=== PATIENT | female | born 1995 | race Caucasian/White ===

== ENCOUNTER 2020-04-27 09:00 | Outpatient (REF) | payer OTHER, SELFPAY ==
[2020-04-27 12:58] LABS: CT PCR NOT DETECTED (Not Detect.); NG PCR NOT DETECTED (Not Detect.)
[2020-04-28 08:38] LABS: HBsAGNum1 0.23 S/CO (0.00-0.99); Hepatitis B Surface Antigen Negative (Negative)
[2020-04-28 09:32] LABS: BV Int Neg Control Negative (Negative); BV Int Pos Control Positive (Positive)
[2020-04-28 09:40] LABS: Syphilis Screen Nonreactive (Nonreactive)
[2020-05-02 22:56] LABS: HSV 1 IgM IFA Negative (Negative); HSV 2 IgM IFA Negative (Negative)
== END 2020-04-27 09:01 | disposition home or self-care (01) ==
LOC: HO.LAB 09:00
PROVIDERS: PCP Internal Medicine; Visit Provider Obstetrics & Gynecology
DX: Z11.3 Encounter for screening for infections with a predominantly sexual mode of transmission (principal); Z01.84 Encounter for antibody response examination; Z12.4 Encounter for screening for malignant neoplasm of cervix
CPT/HCPCS: 86695; 86696; 86780; 87340; 87480; 87491; 87510; 87536; 87591; 87660; 99213

== ENCOUNTER → 2020-05-01 14:03 | Outpatient (BNV) | payer OTHER, SELFPAY | PROVIDERS: PCP Internal Medicine; Visit Provider Internal Medicine | DX: D50.0 Iron deficiency anemia secondary to blood loss (chronic) (principal); N92.0 Excessive and frequent menstruation with regular cycle; D72.9 Disorder of white blood cells, unspecified; Z79.899 Other long term (current) drug therapy | CPT/HCPCS: 99213 ==

== ENCOUNTER 2020-05-12 07:55 | Outpatient (REF) | payer OTHER, SELFPAY | END 2020-05-12 07:56 | disposition home or self-care (01) | LOC: HO.MDS 07:55 | PROVIDERS: PCP Internal Medicine; Visit Provider Internal Medicine | DX: D50.9 Iron deficiency anemia, unspecified (principal) | CPT/HCPCS: 96365; 96366; J1200; J1750; Q0163 ==

== ENCOUNTER 2020-08-17 07:47 | Outpatient (REF) | payer OTHER, SELFPAY ==
[2020-08-17 10:31] LABS: Thyroid Stimulating Hormone 1.81 uIU/mL (0.32-4.0)
[2020-08-18 09:14] LABS: BV Int Neg Control Negative (Negative); BV Int Pos Control Positive (Positive)
[2020-08-18 13:13] LABS: C. trachomatis RNA TMA NOT DETECTED (NOT DETECTED); N. gonorrhoeae RNA TMA NOT DETECTED (NOT DETECTED)
[2020-08-19 17:08] LABS: Prolactin 8.4 ng/mL
[2020-08-21 18:12] LABS: DHEA Sulfate 251 mcg/dL (18-391)
[2020-08-23 13:07] LABS: Testosterone, Total 30 ng/dL (2-45)
== END 2020-08-17 07:48 | disposition home or self-care (01) ==
LOC: HO.LAB 07:47
PROVIDERS: PCP Internal Medicine; Visit Provider Advanced Practice Midwife
DX: Z01.411 Encounter for gynecological examination (general) (routine) with abnormal findings (principal); L68.0 Hirsutism; D50.9 Iron deficiency anemia, unspecified; R10.2 Pelvic and perineal pain; N92.6 Irregular menstruation, unspecified; E66.8 Other obesity; Z68.43 Body mass index [BMI] 50.0-59.9, adult
CPT/HCPCS: 36415; 81025; 82627; 83498; 84146; 84402; 84403; 84443; 87480; 87491; 87510; 87591; 87660

== ENCOUNTER 2020-12-07 14:25 | Outpatient (REF) | payer OTHER, SELFPAY ==
--- NOTE | ~2020-12-07 | US_ITS ---
EXAMINATION: ULTRASOUND PELVIS COMPLETE. CLINICAL INFORMATION: Pelvic and perineal pain. COMPARISON: None TECHNIQUE: Transabdominal and transvaginal imaging of pelvis is performed. FINDINGS: The uterus is anteverted and anteflexed measuring 7.3 cm in length, 3.3 cm AP and 4.1 cm in transverse dimension. Endometrial thickness is 1.4 cm. There is no focal lesion seen in the uterus. There are small anechoic nabothian cysts seen in the cervix. Right ovary measures 3.8 x 3.0 x 1.7 cm and volume 10.2 mL. Small follicular cysts are seen. Previously right ovary measured 2.9 x 4.4 x 3.4 cm. Left ovary measures 2.0 x 2.0 x 2.5 cm and volume 7.9 mL. Small follicular cysts are seen in left ovary. Previously left ovary measured 2.0 x 2.7 x 2.7 cm. There is no free fluid in cul-de-sac. US/US pelvic complete IMPRESSION: Bilateral small ovarian follicular cysts. Small nabothian cysts in the cervix. The uterus is unremarkable.
--- NOTE | ~2020-12-07 | US_ITS ---
EXAMINATION: ULTRASOUND PELVIS COMPLETE. CLINICAL INFORMATION: Pelvic and perineal pain. COMPARISON: None TECHNIQUE: Transabdominal and transvaginal imaging of pelvis is performed. FINDINGS: The uterus is anteverted and anteflexed measuring 7.3 cm in length, 3.3 cm AP and 4.1 cm in transverse dimension. Endometrial thickness is 1.4 cm. There is no focal lesion seen in the uterus. There are small anechoic nabothian cysts seen in the cervix. Right ovary measures 3.8 x 3.0 x 1.7 cm and volume 10.2 mL. Small follicular cysts are seen. Previously right ovary measured 2.9 x 4.4 x 3.4 cm. Left ovary measures 2.0 x 2.0 x 2.5 cm and volume 7.9 mL. Small follicular cysts are seen in left ovary. Previously left ovary measured 2.0 x 2.7 x 2.7 cm. There is no free fluid in cul-de-sac. US/US transvaginal IMPRESSION: Bilateral small ovarian follicular cysts. Small nabothian cysts in the cervix. The uterus is unremarkable.
== END 2020-12-07 14:26 | disposition home or self-care (01) ==
LOC: HO.US 14:25
PROVIDERS: PCP Internal Medicine; Visit Provider Advanced Practice Midwife
DX: R10.2 Pelvic and perineal pain (principal)
CPT/HCPCS: 76830; 76856

== ENCOUNTER → 2020-12-18 11:03 | Outpatient (BNVA) | payer OTHER, SELFPAY | PROVIDERS: PCP Internal Medicine; Visit Provider Advanced Practice Midwife ==

== ENCOUNTER → 2021-01-15 08:35 | Outpatient (BNVA) | payer OTHER, SELFPAY | PROVIDERS: PCP Internal Medicine; Visit Provider Surgery ==

== ENCOUNTER → 2021-01-16 10:56 | Outpatient (BNVA) | payer OTHER, SELFPAY | PROVIDERS: PCP Internal Medicine; Referring Provider Internal Medicine; Visit Provider Physician Assistant ==

== ENCOUNTER 2021-01-19 11:02 | Outpatient (REF) | payer OTHER, SELFPAY ==
--- NOTE | ~2021-01-19 | XR_ITS ---
EXAMINATION: XR CHEST CLINICAL INFORMATION: Obesity COMPARISON: Previous chest x-ray January 2020 TECHNIQUE: 2 views of the chest were obtained. FINDINGS: The cardiac and mediastinal contours are stable. The lungs are clear. There is slight elevation or eventration of the right hemidiaphragm that is unchanged. There is no pleural effusion or pneumothorax. Bony structures are unremarkable. XR/XR chest 2V IMPRESSION: Slight elevation or or eventration of the right hemidiaphragm similar to previous exams. No evidence for acute disease in the chest.
--- NOTE | 2021-01-19 11:10 | ECG_ITS ---
Test Reason : MORBID OBESITY Blood Pressure : / mmHG Vent. Rate : 085 BPM Atrial Rate : 085 BPM P-R Int : 132 ms QRS Dur : 086 ms QT Int : 392 ms P-R-T Axes : 049 061 013 degrees QTc Int : 466 ms Normal sinus rhythm Normal ECG When compared with ECG of 30-JAN-2020 07:44, Nonspecific T wave abnormality no longer evident in Anterior leads Referred By: Brett Nails Electronically Signed By:CONSTANTIN VALERO
[2021-01-19 11:38] LABS: MANUAL DIFF FLAG NO
[2021-01-19 11:44] LABS: Basophils Percent Auto 0.4 % (0-2); Eosinophils Absolute Auto 0.1 X10*3/uL (0.0-0.4); Eosinophils Percent Auto 0.9 % (0-4); Hematocrit 38.4 % (37-47); Hemoglobin 11.9 g/dl (12.0-16.0); Imm Gran Abs Auto 0.04 X10*3/uL (0.00-0.03); Imm Gran Pct Auto 0.4 % (0.0-0.4); Lymphocytes Absolute Auto 2.8 X10*3/uL (1.2-4.9); Lymphocytes Percent Auto 26.2 % (20-40); Mean Corpuscular Hemoglobin 24.7 pg (27.0-33.0); Mean Corpuscular Volume 79.7 fL (80-98); Mean Platelet Volume 9.8 fL (9.4-12.3); Monocytes Absolute Auto 0.5 X10*3/uL (0.1-1.2); Monocytes Percent Auto 4.2 % (2-11); Neutrophils Absolute Auto 7.3 X10*3/uL (2.0-8.3); Neutrophils Percent Auto 67.9 % (45-73); Platelet Count 402 X10*3/uL (160-400); Red Blood Count 4.82 X10*6/uL (4.20-5.50); Red Cell Distribution Width 14.5 % (11.0-16.0); White Blood Count 10.8 X10*3/uL (4.8-10.8)
[2021-01-19 11:52] LABS: Estimated Average Glucose 111 mg/dL; Hemoglobin A1c % 5.5 %
[2021-01-19 12:34] LABS: Vitamin B12 262 pg/mL (200-900)
[2021-01-19 12:35] LABS: Ferritin 132 ng/mL (10-122); TSH reflex Free T4 1.21 uIU/mL (0.32-4.0); Vitamin D 25-OH Total 20.7 ng/mL (>30)
[2021-01-19 13:00] LABS: Alanine Aminotransferase 15 U/L (0-31); Albumin Level 4.2 g/dL (3.5-5.0); Alkaline Phosphatase 110 U/L (39-117); Anion Gap 14 (12-20); Aspartate Amino Transferase 17 U/L (5-31); Bilirubin Total 0.4 mg/dL (0.0-1.0); Blood Urea Nitrogen 10 mg/dL (9-16); Calcium 9.3 mg/dL (8.4-10.2); Carbon Dioxide 24 mmol/L (22-29); Chloride 105 mmol/L (96-108); Cholesterol 151 mg/dL; Estimated Glomerular Filt Rate > 60; Glucose Random 97 mg/dL (60-115); HDL Cholesterol 45 mg/dL; Iron 33 mcg/dL (30-160); LDL Cholesterol Calculated 93 mg/dl; Percent Iron Saturation 10 % (15-50); Potassium 4.3 mmol/L (3.3-5.1); Sodium 139 mmol/L (135-145); Total Iron Binding Capacity 325 mcg/dL (228-428); Total Protein 7.4 g/dL (6.5-8.0); Triglycerides 67 mg/dL; Unsaturated Iron Binding 292 ug/dL
[2021-01-20 09:52] LABS: Insulin Level Total 15.5 uIU/mL
[2021-01-20 14:21] LABS: H Pylori Breath Test NOT DETECTED (NOT DETECTED)
[2021-01-23 08:38] LABS: Calcium (PTHI) 9.2 mg/dL (8.6-10.2); PTHI 70 pg/mL (14-64)
[2021-01-23 13:27] LABS: Zinc 63 mcg/dL (60-130)
[2021-01-24 14:32] LABS: Vitamin A 30 mcg/dL (38-98)
[2021-01-25 13:41] LABS: Vitamin B1 11 nmol/L (8-30)
== END 2021-01-19 11:03 | disposition home or self-care (01) ==
LOC: HO.LAB 11:02
PROVIDERS: PCP Internal Medicine; Visit Provider Surgery
DX: D50.9 Iron deficiency anemia, unspecified (principal); E28.2 Polycystic ovarian syndrome; E66.01 Morbid (severe) obesity due to excess calories; F41.9 Anxiety disorder, unspecified; M54.9 Dorsalgia, unspecified
CPT/HCPCS: 36415; 71046; 80053; 80061; 82306; 82607; 82728; 82746; 83013; 83036; 83525; 83540; 83970; 84425; 84443; 84590; 84630; 85025; 86140; 93005; 99211

== ENCOUNTER → 2021-02-09 07:00 | Outpatient (BNVA) | payer OTHER, SELFPAY | PROVIDERS: PCP Internal Medicine; Visit Provider Surgery ==

== ENCOUNTER → 2021-02-16 08:32 | Outpatient (BNVA) | payer OTHER, SELFPAY | PROVIDERS: PCP Internal Medicine; Visit Provider Dietitian, Registered | DX: E66.9 Obesity, unspecified (principal); Z68.42 Body mass index [BMI] 45.0-49.9, adult | CPT/HCPCS: 97802 ==

== ENCOUNTER → 2021-03-16 08:05 | Outpatient (BNVA) | payer OTHER, SELFPAY | PROVIDERS: PCP Internal Medicine; Visit Provider Dietitian, Registered ==

== ENCOUNTER 2021-03-26 12:09 | Outpatient (REF) | payer OTHER, SELFPAY ==
[2021-03-27 09:00] LABS: HBS Num1 5.47 mIU/mL (0-7.99); HBc Num1 0.32 S/CO (0.00-0.79); HBsAGNum1 0.25 S/CO (0.00-0.99); Hepatitis B Core Antibody Nonreactive (Nonreactive); Hepatitis B Surface Antigen Negative (Negative); ~Hepatitis B Surface Antibody NONREACTIVE (Nonreactive)
[2021-04-02 16:02] LABS: TS Negative Control Passed; TS Panel A 0; TS Panel B 0; TS Positive Control Passed; TSpotTB Negative (SeeBelow)
== END 2021-03-26 12:10 | disposition home or self-care (01) ==
LOC: HO.LAB 12:09
PROVIDERS: PCP Internal Medicine; Visit Provider Internal Medicine
DX: Z11.1 Encounter for screening for respiratory tuberculosis (principal); Z78.9 Other specified health status
CPT/HCPCS: 36415; 86481; 86704; 86706; 87340

== ENCOUNTER 2021-08-08 08:20 | Outpatient (REF) | payer OTHER, SELFPAY ==
[2021-08-08 15:49] LABS: CT PCR NOT DETECTED (Not Detect.); NG PCR NOT DETECTED (Not Detect.)
[2021-08-09 10:01] LABS: BV Int Neg Control Negative (Negative); BV Int Pos Control Positive (Positive)
== END 2021-08-08 08:21 | disposition home or self-care (01) ==
LOC: HO.LAB 08:20
PROVIDERS: PCP Internal Medicine; Visit Provider Advanced Practice Midwife
DX: Z01.419 Encounter for gynecological examination (general) (routine) without abnormal findings (principal); R10.2 Pelvic and perineal pain; E28.2 Polycystic ovarian syndrome; E66.01 Morbid (severe) obesity due to excess calories; Z79.899 Other long term (current) drug therapy; Z20.2 Contact with and (suspected) exposure to infections with a predominantly sexual mode of transmission; Z68.43 Body mass index [BMI] 50.0-59.9, adult; Z32.02 Encounter for pregnancy test, result negative
CPT/HCPCS: 81025; 87086; 87480; 87491; 87510; 87591; 87660; 99212

== ENCOUNTER 2021-08-29 14:14 | Outpatient (REF) | payer OTHER, MEDICAID, SELFPAY ==
--- NOTE | ~2021-08-29 | US_ITS ---
EXAMINATION: US PELVIS CLINICAL INFORMATION: Pelvic and perineal pain. COMPARISON: None TECHNIQUE: Ultrasound of the pelvis is performed using both transabdominal and transvaginal transducers along with Doppler. Transvaginal imaging is performed due to inadequate visualization transabdominally. FINDINGS: Uterus: The uterus is anteverted, anteflexed and measures 6.8 x 3.6 x 5.1 cm. The double wall endometrial thickness is thickened measuring 1.7 cm. The uterus is smooth in contour and has normal myometrial echogenicity. No visible fibroid. Adnexa: Both ovaries are visualized. There is normal color-flow to the adnexa. There is no ovarian torsion. There is no pelvic ascites or fluid collection. Right ovary measures 3.9 x 3.1 x 2.4 cm and volume 15.2 mL. There is an isoechoic cyst measuring 1.8 x 1.5 x 1.3 cm. Left ovary measures 3.0 x 2.7 x 2.3 cm and volume 9.8 mL. US/US pelvic and transvaginal IMPRESSION: Thickened endometrium but no focal lesion seen. The uterus is otherwise unremarkable. Isoechoic cyst right ovary.
== END 2021-08-29 14:15 | disposition home or self-care (01) ==
LOC: HO.US 14:14
PROVIDERS: PCP Internal Medicine; Visit Provider Advanced Practice Midwife
DX: R10.2 Pelvic and perineal pain (principal); E28.2 Polycystic ovarian syndrome
CPT/HCPCS: 76830; 76856

== ENCOUNTER → 2021-10-23 15:20 | Outpatient (BNVA) | payer OTHER, MEDICAID, SELFPAY | PROVIDERS: Visit Provider Advanced Practice Midwife | DX: Z13.89 Encounter for screening for other disorder (principal) ==

== ENCOUNTER 2023-01-22 14:36 | Outpatient (AMB) | payer OTHER, SELFPAY ==
[2023-01-22 14:40] VITALS: BP 126/59; PULSE 96; TEMP 36.4; O2SAT 96; BMI 55.3
--- NOTE | 2023-01-22 14:40 | MHC.OFFVISWM ---
Intake VS Expanded 01/22/23 14:40 Height 5 ft 6 in Weight 342 lb 6.4 oz BMI 55.3 BP 126/59 L Blood Pressure Location Rt brachial Blood Pressure Position Sitting Pulse 96 Pulse Source Pulse Oximeter Temp 97.5 F Temperature Source Temporal Artery Scan Pulse Oximetry 96 Oxygen Delivery Method Room Air Body Fat 183.4 Body Fat Percentage 53.6 Free Fat Mass 159.0 Muscle Mass 151.0 Visceral Mass 19.0 Water Mass 114.2 BMR 2,377 Intake Visit Reasons: (OV) Re-Est SWL Allergies aloe Allergy (Intermediate, Verified 01/22/23 14:42) Hives guaifenesin [From ROBITUSSIN] Allergy (Intermediate, Verified 01/22/23 14:42) Rash HPI HPI Comments History of Present Illness Details 27 yo woman was in our SWL program in January 2022 for 1 month and 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 She came in today to ask about all of the options available to her as she is still unsure about having bariatic surgery - fear of surgery. She understands that she has gaiend weight on her own. [facility] Medical History Anxiety Back pain Depression Extreme obesity Gall stone Hepatitis B immune History of anxiety History of PCOS Insomnia Morbid obesity Surgical History History of surgery Hx of cholecystectomy Family History Maternal Grandmother Diabetes Mother Migraine Father No problems noted. Sister No problems noted. Maternal Uncle Diabetes Family/Other Breast cancer Other Mental health disorder Social History Household Members: None Housing: Apartment Alcohol intake: current Alcohol intake frequency: holidays/special occasions only Patient Tobacco Use Status: Never used Tobacco Second Hand Smoke Exposure: No service: No Current occupational status: employed and unemployed Sexual orientation: Straight/Heterosexual Gender identity: Female Cognitive needs: No Hearing needs: No Vision needs: Yes Female Reproductive History Menstrual Age of Menarche: 12 Physical Exam Vital Signs: Last Vital Signs Temp 97.5 F 01/22/23 14:40 Pulse 96 01/22/23 14:40 BP 126/59 L 01/22/23 14:40 Pulse Ox 96 01/22/23 14:40 Oxygen Delivery Method Room Air 01/22/23 14:40 BMI result Body Mass Index 55.3 Assessment & Plan Assessment & Plan (1) Obesity, morbid, BMI 50 or higher: Code(s): E66.01 - Morbid (severe) obesity due to excess calories Plan: I reviewed our MWL program, Obera balloon, anti-obsity meds and our SWL program including surgical diagrams. She said she will think about it, check with her insurance company and let us know if she wants to restart. Patient is morbidly obese and is not considered stable at this time. I spent 30 minutes in total with patient reviewing/updating records, examining the patient and counseling the patient on weight management as detailed above. Coding Level of Care Code Est Pt Level 4 (77073) Diagnoses Obesity, morbid, BMI 50 or higher E66.01
== END 2023-01-22 15:33 | disposition home or self-care (01) ==
PROVIDERS: PCP Internal Medicine; Visit Provider Physician Assistant
DX: E66.01 Morbid (severe) obesity due to excess calories (principal); Z68.43 Body mass index [BMI] 50.0-59.9, adult
CPT/HCPCS: 99214

== ENCOUNTER → 2023-01-22 14:36 | Outpatient (BNVA) | payer OTHER, SELFPAY | PROVIDERS: PCP Internal Medicine; Visit Provider Physician Assistant | DX: E66.01 Morbid (severe) obesity due to excess calories (principal); Z68.43 Body mass index [BMI] 50.0-59.9, adult | CPT/HCPCS: 99212 ==

== ENCOUNTER 2023-01-23 10:01 | Outpatient (AMB) | payer OTHER, SELFPAY ==
[2023-01-23 10:03] VITALS: BP 110/60; BMI 55.2
--- NOTE | 2023-01-23 10:03 | MHC.OFFVIS ---
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 She has been having regular periods up until recently where she has says she started bleeding at this whole last month. She does not really keep track of her periods so she can keep me a date that the bleeding started she was seen yesterday for 2 other appointments in the system 1 was with weight management program. She had been seen there previously a couple of years ago and had initiated a workup but has been hesitant about proceeding and is it actually afraid of surgery and had a discussion with [facility] yesterday about her options but needs to find out if whether or not her insurance would cover next steps and also she needs to make an appointment with stewardess supervisor. She also saw Dr. Galvez yesterday because she is very anemic and she got some blood work done yesterday that prove set. And she has been scheduled for iron transfusions starting at the end of January. She has not seen her primary care provider in about 8 months according to the system is notes and she is on sertraline through her primary care provider which she says does help with depression. She is currently unemployed and she does live on her own but she spends time either in her house or her parent's house or cleaning. She thinks she may get about half an hour a day of activity or exercise she likes dancing and walking. Yesterday she did not eat much only 2 slices of pizza which she knows was not good but it was because she was so tired before and after her appointments because of the anemia. Her periods before this were regular,; she has always had clots though she says it has been heavier and more crazy in the past, and this is not as heavy as it has been in the past. She was diagnosed with PCOS sometime when she was in high school. She does remember being on control pills in the past but she stopped them because she did not like how they made her feel. She is not sexually active now and has no plans to be but if she did she would use condoms for control.. She wants to start doing something about the PCOS. She had labs ordered a year and a half ago by me but somehow they got canceled in the system it is unclear how or by who. She has had other labs done in the past but quite a while ago by both weight management program and other providers in this office as well her last labs for ?PCOS were done in 2020 and they were within the normal ranges. She is due for a Pap smear as it has been 3 years since her last 1 and she did not come prepared for an exam today. She wants to start dealing with her PCOS and she is hoping very much in her mind that maybe if she was able to use some of the medications that are being used for weight loss now that maybe that would help her because nothing she does seems to work. And she is still afraid of surgery she would like to do it without surgery were if she could. [facility] Medical History Anxiety Back pain Depression Extreme obesity Gall stone Hepatitis B immune History of anxiety History of PCOS Insomnia Morbid obesity Surgical History History of surgery Hx of cholecystectomy Family History Maternal Grandmother Diabetes Mother Migraine Father No problems noted. Sister No problems noted. Maternal Uncle Diabetes Family/Other Breast cancer Other Mental health disorder Social History Household Members: None Housing: Apartment Alcohol intake: current Alcohol intake frequency: holidays/special occasions only Patient Tobacco Use Status: Never used Tobacco Second Hand Smoke Exposure: No service: No Current occupational status: employed and unemployed Sexual orientation: Straight/Heterosexual Gender identity: Female Cognitive needs: No Hearing needs: No Vision needs: Yes Female Reproductive History Menstrual Age of Menarche: 12 Date of last menstrual period: 01/09/23 Physical Exam Vital Signs: Last Vital Signs BP 110/60 01/23/23 10:03 BMI result Body Mass Index 55.2 Assessment & Plan Assessment & Plan (1) PCOS (polycystic ovarian syndrome): Code(s): E28.2 - Polycystic ovarian syndrome (2) Morbid obesity: Code(s): E66.01 - Morbid (severe) obesity due to excess calories (3) PCOS (polycystic ovarian syndrome): Code(s): E28.2 - Polycystic ovarian syndrome (4) Hirsutism: Code(s): L68.0 - Hirsutism (5) Iron deficiency anemia: Code(s): D50.9 - Iron deficiency anemia, unspecified (6) Abnormal uterine bleeding (AUB): Code(s): N93.9 - Abnormal uterine and vaginal bleeding, unspecified (7) Obesity, morbid, BMI 50 or higher: Code(s): E66.01 - Morbid (severe) obesity due to excess calories Plan Is scheduled here today as a follow-up PCOS visit however she was last seen for discussion about PCOS with a plan to do labs that had been previously ordered I year and a half ago. She has been having regular periods up until recently where she has says she started bleeding at this whole last month. She does not really keep track of her periods so she can keep me a date that the bleeding started she was seen yesterday for 2 other appointments in the system 1 was with weight management program. She had been seen there previously a couple of years ago and had initiated a workup but has been hesitant about proceeding and is it actually afraid of surgery and had a discussion with [facility] yesterday about her options but needs to find out if whether or not her insurance would cover next steps and also she needs to make an appointment with stewardess supervisor. She also saw Dr. Galvez yesterday because she is very anemic and she got some blood work done yesterday that prove set. And she has been scheduled for iron transfusions starting at the end of January. She has not seen her primary care provider in about 8 months according to the system is notes and she is on sertraline through her primary care provider which she says does help with depression. She is currently unemployed and she does live on her own but she spends time either in her house or her parent's house or cleaning. She thinks she may get about half an hour a day of activity or exercise she likes dancing and walking. Yesterday she did not eat much only 2 slices of pizza which she knows was not good but it was because she was so tired before and after her appointments because of the anemia. Her periods before this were regular,; she has always had clots though she says it has been heavier and more crazy in the past, and this is not as heavy as it has been in the past. She was diagnosed with PCOS sometime when she was in high school. She does remember being on control pills in the past but she stopped them because she did not like how they made her feel. She is not sexually active now and has no plans to be but if she did she would use condoms for control.. She wants to start doing something about the PCOS. She had labs ordered a year and a half ago by me but somehow they got canceled in the system it is unclear how or by who. She has had other labs done in the past but quite a while ago by both weight management program and other providers in this office as well her last labs for ?PCOS were done in 2020 and they were within the normal ranges. She is due for a Pap smear as it has been 3 years since her last 1 and she did not come prepared for an exam today. She wants to start dealing with her PCOS and she is hoping very much in her mind that maybe if she was able to use some of the medications that are being used for weight loss now that maybe that would help her because nothing she does seems to work. And she is still afraid of surgery she would like to do it without surgery were if she could. Again reviewed the interconnected in this of increased body mass with the elevated hormonal levels and metabolic demands on all of her organs and the interplay with PCOS. Even though she has had these labs done before I am repeating the request for the PCOS baseline labs and because she does not have an appointment with her primary coming up for a long time and as I am going to place other referrals for her and this is of major concern for her am ordering some baseline metabolic labs that can be further evaluated and assist in her evaluate of process in the future when she sees the other providers in particular I am ordering fasting metabolic lab work as it does not appear any is been done and fasting glucose and 2 hour GTT to screen for diabetes and hemoglobin A1c and thyroid levels as well. I am placing referral to endocrinology for full review of all of these issues and I am encouraging her to make the nutrition appointment that she is waiting on via the weight management program encouraged her to really use this summer of unemployment as a time to really start paying attention to her health and her weight and in particular to start keeping track of what she eats avoid carbohydrates in general and I did speak about what those were focus on proteins and vegetables and keep a record of what she eats in addition she needs to start keeping it track of her cycles in great detail and in addition to this I discussed that S part of the evaluation of her abnormal bleeding and have enough bleeding to have caused anemia that I am ordering a pelvic ultrasound and she may very well need an endometrial biopsy at her next exam when she comes in for her Pap smear as well she was not prepared for exam today so this will be at all at the next exam. In addition I did offer her the opportunity to start oral contraceptive pills today as she is normotensive does not have a history of a blood clotting disorder or liver problems or migraines with auras however she did not like how she felt on the pills so she does not want to do that at this time I did tell her that it is possible that other providers may recommend that she adopt this as part of the whole treatment process and we may be revisiting this issue as well in order to help control her periods but there also may be other options which I did not going to today but would include a Kyleena or Mirena control IUD. Orders: Orders Comprehensive Gorman. Panel Fast Today D50.9 - Iron deficiency anemia, unspecified, E28.2 - Polycystic ovarian syndrome, E66.01 - Morbid (severe) obesity due to excess calories, L68.0 - Hirsutism, N93.9 - Abnormal uterine and vaginal bleeding, unspecified, Z13.9 - Encounter for screening, unspecified DHEA Sulfate Today D50.9 - Iron deficiency anemia, unspecified, E28.2 - Polycystic ovarian syndrome, E66.01 - Morbid (severe) obesity due to excess calories, L68.0 - Hirsutism, N93.9 - Abnormal uterine and vaginal bleeding, unspecified, Z13.9 - Encounter for screening, unspecified Glucose Tolerance 2 Hour Today D50.9 - Iron deficiency anemia, unspecified, E28.2 - Polycystic ovarian syndrome, E66.01 - Morbid (severe) obesity due to excess calories, L68.0 - Hirsutism, N93.9 - Abnormal uterine and vaginal bleeding, unspecified, Z13.9 - Encounter for screening, unspecified Lutenizing Hormone Today D50.9 - Iron deficiency anemia, unspecified, E28.2 - Polycystic ovarian syndrome, E66.01 - Morbid (severe) obesity due to excess calories, L68.0 - Hirsutism, N93.9 - Abnormal uterine and vaginal bleeding, unspecified, Z13.9 - Encounter for screening, unspecified Sex Hormone Binding Globulin Today D50.9 - Iron deficiency anemia, unspecified, E28.2 - Polycystic ovarian syndrome, E66.01 - Morbid (severe) obesity due to excess calories, L68.0 - Hirsutism, N93.9 - Abnormal uterine and vaginal bleeding, unspecified, Z13.9 - Encounter for screening, unspecified Testosterone, Free/Total Today D50.9 - Iron deficiency anemia, unspecified, E28.2 - Polycystic ovarian syndrome, E66.01 - Morbid (severe) obesity due to excess calories, L68.0 - Hirsutism, N93.9 - Abnormal uterine and vaginal bleeding, unspecified, Z13.9 - Encounter for screening, unspecified TSH reflex Free T4 Today D50.9 - Iron deficiency anemia, unspecified, E28.2 - Polycystic ovarian syndrome, E66.01 - Morbid (severe) obesity due to excess calories, L68.0 - Hirsutism, N93.9 - Abnormal uterine and vaginal bleeding, unspecified, Z13.9 - Encounter for screening, unspecified US pelvic and transvaginal Today D50.9 - Iron deficiency anemia, unspecified, E28.2 - Polycystic ovarian syndrome, E66.01 - Morbid (severe) obesity due to excess calories, L68.0 - Hirsutism, N93.9 - Abnormal uterine and vaginal bleeding, unspecified AMB Hemoglobin A1c Today D50.9 - Iron deficiency anemia, unspecified, E28.2 - Polycystic ovarian syndrome, E66.01 - Morbid (severe) obesity due to excess calories, L68.0 - Hirsutism, N93.9 - Abnormal uterine and vaginal bleeding, unspecified, Z13.9 - Encounter for screening, unspecified Referrals Endocrinology Referral D50.9 - Iron deficiency anemia, unspecified, E28.2 - Polycystic ovarian syndrome, E66.01 - Morbid (severe) obesity due to excess calories, L68.0 - Hirsutism, N93.9 - Abnormal uterine and vaginal bleeding, unspecified Coding Level of Care Code Est Pt Level 3 (25732) Diagnoses PCOS (polycystic ovarian syndrome) E28.2 Morbid obesity E66.01 Hirsutism L68.0 Iron deficiency anemia D50.9 Abnormal uterine bleeding (AUB) N93.9 Obesity, morbid, BMI 50 or higher E66.01 Time Spent (min) 55 Comment 100% of the visit spent speaking with the patient going over history and making a plan
== END 2023-01-23 11:24 | disposition home or self-care (01) ==
LOC: HO.HWS 10:01
PROVIDERS: PCP Internal Medicine; Visit Provider Advanced Practice Midwife
DX: E28.2 Polycystic ovarian syndrome (principal); E66.01 Morbid (severe) obesity due to excess calories; L68.0 Hirsutism; D50.9 Iron deficiency anemia, unspecified; N93.9 Abnormal uterine and vaginal bleeding, unspecified
CPT/HCPCS: 99213

== ENCOUNTER → 2023-01-23 10:01 | Outpatient (BNVA) | payer OTHER, SELFPAY | PROVIDERS: PCP Internal Medicine; Visit Provider Advanced Practice Midwife | DX: E28.2 Polycystic ovarian syndrome (principal); L68.0 Hirsutism; D50.9 Iron deficiency anemia, unspecified; N93.9 Abnormal uterine and vaginal bleeding, unspecified; E66.01 Morbid (severe) obesity due to excess calories; Z68.43 Body mass index [BMI] 50.0-59.9, adult | CPT/HCPCS: 99212 ==

== ENCOUNTER 2023-01-28 07:01 | Outpatient (REF) | payer OTHER, SELFPAY ==
[2023-01-28 08:10] LABS: Glucose Fasting 104 mg/dL (60-99)
[2023-01-28 08:19] LABS: Alanine Aminotransferase 12 U/L (0-31); Alkaline Phosphatase 111 U/L (39-117); Anion Gap 14 (12-20); Aspartate Amino Transferase 12 U/L (5-31); Bilirubin Total 0.2 mg/dL (0.0-1.0); Blood Urea Nitrogen 12 mg/dL (9-16); Calcium 8.9 mg/dL (8.4-10.2); Carbon Dioxide 22 mmol/L (22-29); Chloride 107 mmol/L (96-108); Estimated Glomerular Filt Rate > 60; Glucose Fasting 104 mg/dL (60-99); Potassium 4.1 mmol/L (3.3-5.1); Sodium 139 mmol/L (135-145); Total Protein 7.9 g/dL (6.5-8.0)
[2023-01-28 08:34] LABS: TSH reflex Free T4 3.49 uIU/mL (0.32-4.0)
[2023-01-28 09:08] LABS: Glucose 1 Hour 176 mg/dL
[2023-01-28 10:41] LABS: Glucose 2 Hour 154 mg/dL
[2023-01-30 05:44] LABS: DHEA Sulfate 170 mcg/dL (14-349); Lutenizing Hormone 6.1 mIU/mL; Sex Hormone Binding Globulin 25 nmol/L (17-124)
[2023-02-02 16:38] LABS: Testosterone, Free 5.7 pg/mL (0.1-6.4); Testosterone, Total 38 ng/dL (2-45)
== END 2023-01-28 07:02 | disposition home or self-care (01) ==
LOC: HO.LAB 07:01
PROVIDERS: PCP Internal Medicine; Visit Provider Advanced Practice Midwife
DX: D50.9 Iron deficiency anemia, unspecified (principal); E28.2 Polycystic ovarian syndrome; E66.01 Morbid (severe) obesity due to excess calories; N93.9 Abnormal uterine and vaginal bleeding, unspecified; L68.0 Hirsutism
CPT/HCPCS: 36415; 80053; 82627; 83002; 84270; 84402; 84403; 84443

== ENCOUNTER 2023-01-31 11:17 | Outpatient (REF) | payer OTHER, SELFPAY ==
--- NOTE | ~2023-01-31 | US_ITS ---
EXAMINATION: US PELVIS CLINICAL INFORMATION: Abnormal uterine and vaginal bleeding, last menstrual period 01/09/2023. COMPARISON: 08/29/2021. TECHNIQUE: Ultrasound of the pelvis is performed using both transabdominal and transvaginal transducers along with Doppler. Transvaginal imaging is performed due to inadequate visualization transabdominally. FINDINGS: The uterus is anteverted, heterogeneous and measures 7.2 x 3.1 x 4.3 cm. Nabothian cysts present. No discrete fibroids identified. Endometrial thickness is 1.2 cm and endometrium appears heterogeneous. There is no significant free fluid. Right ovary measures 4.4 x 2.8 x 2.5 cm, volume 16.1 mL. Left ovary measures 3.4 x 2.0 x 2.4 cm, volume 8.5 mL. Bilateral ovaries demonstrate multiple small peripheral follicles. US/US pelvic and transvaginal IMPRESSION: 1. Endometrium appears heterogeneous with thickness of 1.2 cm. 2. Right ovary larger in size than left. Multiple small peripheral follicles in the bilateral ovaries. Correlation with clinical and laboratory exam recommended if there is concern for polycystic ovarian syndrome. Gynecologic consultation recommended to determine further management
== END 2023-01-31 11:18 | disposition home or self-care (01) ==
LOC: HO.US 11:17
PROVIDERS: PCP Internal Medicine; Visit Provider Advanced Practice Midwife
DX: E28.2 Polycystic ovarian syndrome (principal); N93.9 Abnormal uterine and vaginal bleeding, unspecified; E66.01 Morbid (severe) obesity due to excess calories; L68.0 Hirsutism; D50.9 Iron deficiency anemia, unspecified
CPT/HCPCS: 76830; 76856

== ENCOUNTER 2023-02-06 09:44 | Outpatient (REF) | payer OTHER, SELFPAY | END 2023-02-06 09:45 | disposition home or self-care (01) | LOC: HO.MDS 09:44 | PROVIDERS: Visit Provider Internal Medicine | DX: D50.8 Other iron deficiency anemias (principal) | CPT/HCPCS: 96365; J1756 ==

== ENCOUNTER 2023-02-14 09:20 | Outpatient (REF) | payer OTHER, SELFPAY | END 2023-02-14 09:21 | disposition home or self-care (01) | LOC: HO.MDS 09:20 | PROVIDERS: Visit Provider Internal Medicine | DX: D50.8 Other iron deficiency anemias (principal) | CPT/HCPCS: 96365; J1756 ==

== ENCOUNTER 2023-02-21 09:24 | Outpatient (REF) | payer OTHER, SELFPAY | END 2023-02-21 09:25 | disposition home or self-care (01) | LOC: HO.MDS 09:24 | PROVIDERS: Visit Provider Internal Medicine | DX: D50.8 Other iron deficiency anemias (principal) | CPT/HCPCS: 96365; J1756 ==

== ENCOUNTER 2023-02-24 14:20 | Outpatient (AMB) | payer OTHER, SELFPAY ==
--- NOTE | 2023-02-24 14:21 | MHC.OFFVISWM ---
Intake VS Expanded 02/24/23 14:29 Height 5 ft 6 in Weight 339 lb 6.4 oz BMI 54.8 BP 143/70 H Blood Pressure Location Rt brachial Blood Pressure Position Sitting Pulse 111 H Pulse Source Pulse Oximeter Temp 96.4 F L Temperature Source Tympanic Pulse Oximetry 96 Oxygen Delivery Method Room Air Body Fat Percentage 187.6 Free Fat Mass 151.6 Muscle Mass 144.0 Visceral Mass 19.0 Water Mass 109.2 BMR 2,285 Intake Visit Reasons: (OV) F/U SWL Allergies aloe Allergy (Intermediate, Verified 02/24/23 14:30) Hives guaifenesin [From ROBITUSSIN] Allergy (Intermediate, Verified 02/24/23 14:30) Rash Medication List - Last Reconciled 02/24/23 by Valeria Mohr PA-C sertraline 100 mg PO DAILY 90 days HPI HPI Comments History of Present Illness Details Pt has decided to restart SWL program for bariatric surgery. PCP tried to prescribe WEogvy abut insurnace doesn't cover it, may start her on Metformin. Will start new job - working 8a - 8pm 4 days per week. Gets iron transfusion every 2 years. Wake up - 11:30 am, bed at 9pm, falls asleep at MN -1 am. 12 pm - eggs and yogurt or leftovers - what ever is quick and easy . water 2- 3 pm - bag of chips or leftovers (rice and chicken) snacks on another bag of chips 6pm - repeats same food, does not like variety in hr foods. eats different colored morin peppers snacks every 2 hours. cereal or bag of chips No soda, drinks grape juice or fruit punch 4d/week. No EToh, no tobacco or marijuana would get membership to gym. [facility] Medical History Anxiety Back pain Depression Extreme obesity Gall stone Hepatitis B immune History of anxiety History of PCOS Insomnia Morbid obesity Surgical History History of surgery Hx of cholecystectomy Family History Maternal Grandmother Diabetes Mother Migraine Father No problems noted. Sister No problems noted. Maternal Uncle Diabetes Family/Other Breast cancer Other Mental health disorder Social History Household Members: None Housing: Apartment Alcohol intake: current Alcohol intake frequency: holidays/special occasions only Patient Tobacco Use Status: Never used Tobacco Second Hand Smoke Exposure: No service: No Current occupational status: employed and unemployed Sexual orientation: Straight/Heterosexual Gender identity: Female Cognitive needs: No Hearing needs: No Vision needs: Yes Female Reproductive History Menstrual Age of Menarche: 12 Physical Exam Vital Signs: Last Vital Signs Temp 96.4 F L 02/24/23 14:29 Pulse 111 H 02/24/23 14:29 BP 143/70 H 02/24/23 14:29 Pulse Ox 96 02/24/23 14:29 Oxygen Delivery Method Room Air 02/24/23 14:29 BMI result Body Mass Index 54.8 Assessment & Plan Assessment & Plan (1) Morbid obesity: Code(s): E66.01 - Morbid (severe) obesity due to excess calories Plan: Get ready for bed and then nightime ritual and no electroniics in beat 12am. will wake at 10 am- 12 pm - 30 gram protein shake 3pm - another shake 6pm - 6 oz protein and 6 oz vegetable, 1 serving of fruit 9pm- czech yogurt or protein bar Exercise - LS 2 mile every other day for 2 weeks then 5d/ week. All pre op work up ordered. Next appt with me in 3 weeks, will text me weekly. Patient is morbidly obese and is not considered stable at this time. I spent minutes in total with patient reviewing/updating records, examining the patient and counseling the patient on weight management as detailed above. (2) PCOS (polycystic ovarian syndrome): Code(s): E28.2 - Polycystic ovarian syndrome (3) ADD (attention deficit disorder): Code(s): F98.8 - Other specified behavioral and emotional disorders with onset usually occurring in childhood and adolescence Qualifiers: Hyperactivity presence: present Attention deficit-hyperactivity disorder type: unspecified Qualified Code(s): F90.9 - Attention-deficit hyperactivity disorder, unspecified type Orders: Orders Vitamin B12 and Folate Today E28.2 - Polycystic ovarian syndrome, E66.01 - Morbid (severe) obesity due to excess calories Hemoglobin A1c Today E28.2 - Polycystic ovarian syndrome, E66.01 - Morbid (severe) obesity due to excess calories Insulin Today E28.2 - Polycystic ovarian syndrome, E66.01 - Morbid (severe) obesity due to excess calories Lipid Panel Today E28.2 - Polycystic ovarian syndrome, E66.01 - Morbid (severe) obesity due to excess calories PTHI Today E28.2 - Polycystic ovarian syndrome, E66.01 - Morbid (severe) obesity due to excess calories Vitamin A Today E28.2 - Polycystic ovarian syndrome, E66.01 - Morbid (severe) obesity due to excess calories Vitamin D 25-OH Total Today E28.2 - Polycystic ovarian syndrome, E66.01 - Morbid (severe) obesity due to excess calories Zinc Today E28.2 - Polycystic ovarian syndrome, E66.01 - Morbid (severe) obesity due to excess calories ECG 12 lead EKG Today E28.2 - Polycystic ovarian syndrome, E66.01 - Morbid (severe) obesity due to excess calories FL upper GI w air Today E28.2 - Polycystic ovarian syndrome, E66.01 - Morbid (severe) obesity due to excess calories H Pylori Breath Test Today E28.2 - Polycystic ovarian syndrome, E66.01 - Morbid (severe) obesity due to excess calories US abdomen comp w elastography Today E28.2 - Polycystic ovarian syndrome, E66.01 - Morbid (severe) obesity due to excess calories XR chest 2V Today E28.2 - Polycystic ovarian syndrome, E66.01 - Morbid (severe) obesity due to excess calories Referrals Behavioral Health Referral E28.2 - Polycystic ovarian syndrome, E66.01 - Morbid (severe) obesity due to excess calories Nutrition/Dietitian Referral E28.2 - Polycystic ovarian syndrome, E66.01 - Morbid (severe) obesity due to excess calories Coding Level of Care Code Est Pt Level 4 (62375) Diagnoses Morbid obesity E66.01 PCOS (polycystic ovarian syndrome) E28.2 ADD (attention deficit disorder) F90.9 Hyperactivity presence: present Attention deficit-hyperactivity disorder type: unspecified
[2023-02-24 14:29] VITALS: BP 143/70; PULSE 111; TEMP 35.8; O2SAT 96; BMI 54.8
== END 2023-02-24 15:07 | disposition home or self-care (01) ==
PROVIDERS: PCP Internal Medicine; Visit Provider Physician Assistant
DX: E66.01 Morbid (severe) obesity due to excess calories (principal); Z68.43 Body mass index [BMI] 50.0-59.9, adult; E28.2 Polycystic ovarian syndrome; F90.9 Attention-deficit hyperactivity disorder, unspecified type
CPT/HCPCS: 99214

== ENCOUNTER 2023-02-24 14:20 | Outpatient (REF) | payer OTHER, SELFPAY ==
[2023-02-28 16:42] LABS: H Pylori Breath Test Negative (Negative)
== END 2023-02-24 14:21 | disposition home or self-care (01) ==
LOC: HO.LNP 14:20
PROVIDERS: PCP Internal Medicine; Visit Provider Physician Assistant
DX: E66.01 Morbid (severe) obesity due to excess calories (principal); E28.2 Polycystic ovarian syndrome; F90.9 Attention-deficit hyperactivity disorder, unspecified type
CPT/HCPCS: 83013; 99211; 99212

== ENCOUNTER 2023-02-28 06:06 | Outpatient (REF) | payer OTHER, SELFPAY ==
--- NOTE | ~2023-02-28 | XR_ITS ---
EXAMINATION: XR CHEST CLINICAL INFORMATION: Obesity COMPARISON: Previous chest x-ray from 2020 TECHNIQUE: 2 views of the chest were obtained. FINDINGS: No significant abnormality is noted involving the heart, lungs, mediastinum, bony thorax or soft tissues. XR/XR chest 2V IMPRESSION: Unremarkable examination.
--- NOTE | 2023-02-28 06:27 | ECG_ITS ---
Test Reason : e66.01 Blood Pressure : / mmHG Vent. Rate : 088 BPM Atrial Rate : 088 BPM P-R Int : 136 ms QRS Dur : 082 ms QT Int : 370 ms P-R-T Axes : 042 056 021 degrees QTc Int : 447 ms Normal sinus rhythm Normal ECG When compared with ECG of 19-JAN-2021 11:16, No significant change was found Referred By: Valeria Mohr Electronically Signed By:KATHIA LOERA
[2023-02-28 07:40] LABS: Estimated Average Glucose 94 mg/dL; Hemoglobin A1c % 4.9 %
[2023-02-28 07:53] LABS: Cholesterol 141 mg/dL; HDL Cholesterol 47 mg/dL; LDL Cholesterol Calculated 77 mg/dl; Triglycerides 85 mg/dL
[2023-02-28 08:18] LABS: Vitamin D 25-OH Total 20.2 ng/mL (>30)
[2023-02-28 08:22] LABS: Insulin 16 uU/mL (2-29)
[2023-02-28 08:25] LABS: Folate 9.4 ng/mL (> or = 4.0); Vitamin B12 325 pg/mL (200-900)
[2023-03-03 13:48] LABS: Calcium (PTHI) 9.3 mg/dL (8.6-10.2); PTHI 89 pg/mL (16-77)
[2023-03-04 23:44] LABS: Zinc 78 mcg/dL (60-130)
[2023-03-05 22:33] LABS: Vitamin A 30 mcg/dL (38-98)
== END 2023-02-28 06:07 | disposition home or self-care (01) ==
LOC: HO.XRAY 06:06
PROVIDERS: PCP Internal Medicine; Visit Provider Physician Assistant
DX: E28.2 Polycystic ovarian syndrome (principal); E66.01 Morbid (severe) obesity due to excess calories
CPT/HCPCS: 36415; 71046; 80061; 82306; 82607; 82746; 83036; 83525; 83970; 84590; 84630; 93005

== ENCOUNTER 2023-03-18 11:27 | Outpatient (AMB) | payer OTHER, SELFPAY ==
--- NOTE | 2023-03-18 11:17 | MHC.AMNUTRGE ---
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 Is using the Think bars. So instead she usually has a turkish yogurt. Since starting program, tried some vegetables and likes a few. Is planning to keep trying . Gave recipe books. Exercise: None, feels unsure how to start . Really likes to walk outside , dislikes the idea of workout at home with videos. Encouraged she start walking outside but we talked about intensity and getting heart rate up for 30-45 minutes. As the weather gets colder she plans to join a [employer] gym , which she works right next to Pt shares her Radio Division Officer put her on metformin on last Friday for PCOS (per pt) SWL online classes 10/19 Dietary counseling reduction Who buys your food self Who prepares/cooks your food self Lifestyle Food frequency Vegetables: never, Grains/pasta/breads/cereal (carbs): daily, Meats/poultry/fish (protein): daily (mostly chicken, beef, and turkey ), Meat substitutes/nuts/seeds/legumes: daily, Processed foods/meats: daily, Water: daily, Soda: daily and Juice: daily Diagnosis Nutrition problem #1 overweight/obesity As related to (etiology) #1 excess energy intake and physical inactivity As evidenced by (sign/symptom) #1 high BMI Monitoring/Goals Nutrition problem monitoring total energy intake, HgbA1c, level of knowledge/skill, total PRO intake, total CHO intake, weight and oral fluids Outcome progress progressing Learning/Education Readiness to learn excellent Stages of change action Educational materials provided Yes Most Recent Diabetes Results: Cholesterol 141 mg/dL 02/28/23 HDL Cholesterol 47 mg/dL 02/28/23 Triglycerides 85 mg/dL 02/28/23 Creatinine 0.81 mg/dL (0.5-1.4) 01/28/23 Blood Urea Nitrogen 12 mg/dL (9-16) 01/28/23 Sodium 139 mmol/L (135-145) 01/28/23 Potassium 4.1 mmol/L (3.3-5.1) 01/28/23 Chloride 107 mmol/L (96-108) 01/28/23 Carbon Dioxide 22 mmol/L (22-29) 01/28/23 Calcium 8.9 mg/dL (8.4-10.2) 01/28/23 AST 12 U/L (5-31) 01/28/23 ALT 12 U/L (0-31) 01/28/23 Total Protein 7.9 g/dL (6.5-8.0) 01/28/23 Albumin 4.0 g/dL (3.5-5.0) 01/28/23 [facility] Medical History Anxiety Back pain Depression Extreme obesity Gall stone Hepatitis B immune History of anxiety History of PCOS Insomnia Morbid obesity Surgical History History of surgery Hx of cholecystectomy Family History Maternal Grandmother Diabetes Mother Migraine Father No problems noted. Sister No problems noted. Maternal Uncle Diabetes Family/Other Breast cancer Other Mental health disorder Social History Household Members: None Housing: Apartment Alcohol intake: current Alcohol intake frequency: holidays/special occasions only Patient Tobacco Use Status: Never used Tobacco Second Hand Smoke Exposure: No service: No Current occupational status: employed and unemployed Sexual orientation: Straight/Heterosexual Gender identity: Female Cognitive needs: No Hearing needs: No Vision needs: Yes Female Reproductive History Menstrual Age of Menarche: 12 Assessment & Plan Assessment & Plan (1) Morbid obesity: Code(s): E66.01 - Morbid (severe) obesity due to excess calories Patient Instructions: Consider switching to a protein bar that contains dietary fiber - options provided. Overall she is doing great, will likely be a good candidate once she completes the program requirements. She will follow-up with me 10/16 11am - do not r/s appt. Telehealth Telehealth Location of provider rendering services: practice address Location of patient: address on file Patient Identification confirmed using: Name, : Yes Telehealth method: video Patient verbally consented to treatment: Yes Patient verbally consented to billing insurance company: Yes Patient informed of any privacy concerns related to visit: Yes Minutes spent on Phone/Video with Pt.: 30 Coding Level of Care Code Nutr Indiv Intake (65090) Diagnoses Morbid obesity E66.01 Time Spent (min) 30
[2023-03-18 11:45] VITALS: BMI 52.5
== END 2023-03-18 11:41 | disposition home or self-care (01) ==
LOC: HO.HBS 11:27
PROVIDERS: PCP Internal Medicine; Visit Provider Dietitian, Registered
DX: E66.01 Morbid (severe) obesity due to excess calories (principal)

== ENCOUNTER → 2023-03-18 11:27 | Outpatient (BNVA) | payer OTHER, SELFPAY | PROVIDERS: PCP Internal Medicine; Visit Provider Dietitian, Registered | DX: E66.01 Morbid (severe) obesity due to excess calories (principal); Z68.43 Body mass index [BMI] 50.0-59.9, adult; Z71.3 Dietary counseling and surveillance | CPT/HCPCS: 97802 ==

== ENCOUNTER 2023-03-18 13:10 | Outpatient (AMB) | payer OTHER, SELFPAY ==
--- NOTE | 2023-03-18 12:50 | MHC.WMTHER ---
Intake Intake Visit Reasons: VIDEO BH Intake Allergies aloe Allergy (Intermediate, Verified 02/24/23 14:30) Hives guaifenesin [From ROBITUSSIN] Allergy (Intermediate, Verified 02/24/23 14:30) Rash PFSH Medical History Anxiety Back pain Depression Extreme obesity Gall stone Hepatitis B immune History of anxiety History of PCOS Insomnia Morbid obesity Surgical History History of surgery Hx of cholecystectomy Family History Maternal Grandmother Diabetes Mother Migraine Father No problems noted. Sister No problems noted. Maternal Uncle Diabetes Family/Other Breast cancer Other Mental health disorder Social History Household Members: None Housing: Apartment Alcohol intake: current Alcohol intake frequency: holidays/special occasions only Patient Tobacco Use Status: Never used Tobacco Second Hand Smoke Exposure: No service: No Current occupational status: employed and unemployed Sexual orientation: Straight/Heterosexual Gender identity: Female Cognitive needs: No Hearing needs: No Vision needs: Yes Female Reproductive History Menstrual Age of Menarche: 12 Behavioral Health Assessment Weight Management Therapy Therapy Notes Details Pt stated that she has struggled with her weight for a while now and is looking to have weight loss surgery. She reported that she was in therapy 3 years ago and then had to stop due to her insurance. Her PCP is prescribing medication for anxiety. She reported struggling with irritability, tightness in her chest, crying, emotional, dysregulated. Patient reported struggling since childhood with anxiety and depression and that her step father was an addict. Presenting Concerns Referral Source provider Reason for referral weight loss surgery evaluation Precipitating Event obesity Living Situation Current Living Situation Rent At risk of losing current housing? No Satisfied with current living situation? Yes Comments Pt lives in her own in her apartment. Food/Weight/Diet Expectations of change weight loss and maintenance History/Relationship with food Patient has been using food to cope since childhood. She often will snack on salty foods such as chips. She would eat rice, pasta, juice, soda. High intake of carbs. Pt reported some episodes of binge eating however not daily like in the past. History/Relationship with weight Pt reported being overweight since she was a teenager. History/Relationship with dieting WMP in 2018 and 2020. Has tried in the past with counting calories and cutting back on carbs. She was able to loose at most 30lbs in the past. Binge Eating Do you frequently eat large amounts of food in short periods of time, not feeling physically hungry? No Do you feel out of control when you eat a large amount of food in a short period of time? No Do you eat large amounts of food rapidly and typically alone? Yes Night Eating Do you wake up at least once during the night to eat? No If you wake up in the night, do you find that it is necessary to eat something in order to fall back asleep? Yes Do you have little or no appetite in the morning and feel very hungry in the evening, often overeating between dinner and when you go to bed? Yes Social History Family history and relationship Pt was born in [place] and moved here at age 4 with her sister and mother. She reported that her step father raised her from age 4 and until he two years ago. Pt is currently in a relationship. 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 Zoroastrianism/Spirituality Spiritual . Cultural/Ethnic information Legal Involvement and History Current or historical involvement with the legal system? none known Education Highest grade completed some college Preferred learning style Auditory, Verbal, Written, Learn by doing and Visual Currently enrolled in educational program? No Interested in further educational program? 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 No Meaningful activities walking, [place], swimming Financial Situation Describe current financial situation Occasional struggle Financial assistance? None Service Service? No Mental Health and Addiction Treatment Current/Past substance abuse? No Current/Past addictive behavior concerns? No Medical and Physical Health Summary Physical exam in the last year? No Pain Screening Current pain? No Pain in the last few months? No Medications Is the patient compliant with medications? Yes Does the patient have Bone Guardian in place? Not applicable Does the patient use complimentary health approaches? No Trauma/Abuse History History of trauma? Yes Assessment & Plan Assessment & Plan (1) Generalized anxiety disorder with panic attacks: Code(s): F41.1 - Generalized anxiety disorder; F41.0 - Panic disorder [episodic paroxysmal anxiety] (2) PCOS (polycystic ovarian syndrome): Code(s): E28.2 - Polycystic ovarian syndrome (3) Obesity, morbid, BMI 50 or higher: Code(s): E66.01 - Morbid (severe) obesity due to excess calories (4) Mild recurrent major depression: Code(s): F33.0 - Major depressive disorder, recurrent, mild Plan Patient reported doing well so far, no major issues. She denied any recent binging and even in recent years no longer engages in this regularly. Patient will be seen again. Coding Level of Care Code Tele y Diag Eval (23377) Diagnoses Generalized anxiety disorder with panic attacks F41.1; F41.0 PCOS (polycystic ovarian syndrome) E28.2 Obesity, morbid, BMI 50 or higher E66.01 Mild recurrent major depression F33.0 Time Spent (min) 40
== END 2023-03-18 13:17 | disposition home or self-care (01) ==
LOC: HO.HBST 13:10
PROVIDERS: PCP Internal Medicine; Visit Provider Counselor Mental Health
DX: F41.1 Generalized anxiety disorder (principal); F41.0 Panic disorder [episodic paroxysmal anxiety]; E28.2 Polycystic ovarian syndrome; E66.01 Morbid (severe) obesity due to excess calories; F33.0 Major depressive disorder, recurrent, mild
CPT/HCPCS: 90791

== ENCOUNTER 2023-03-21 08:14 | Outpatient (REF) | payer OTHER, SELFPAY ==
--- NOTE | ~2023-03-21 | US_ITS ---
EXAMINATION: US COMPLETE ABDOMEN WITH LIVER ELASTOGRAPHY CLINICAL INFORMATION: COMPARISON: None available. TECHNIQUE: Real-time imaging of the abdominal viscera. Noninvasive ultrasound liver fibrosis assessment is performed using Anni ElastPQ point quantification shear wave elastography (2D-SWE) with a C5-2 MHz transducer. Multiple elastography samples are obtained. Imaging is limited by body habitus. FINDINGS: PANCREAS: Largely obscured by overlapping bowel gas. ABDOMINAL AORTA: The mid and distal aortic segments are normal in caliber. The proximal segment is obscured by overlapping bowel gas. INFERIOR VENA CAVA: Visualized portions are normal. LIVER: The liver demonstrates normal size, contour and slightly increased echogenicity. No focal lesion or intrahepatic biliary duct dilatation. The right lobe measures 14.1 cm in length. The left lobe measures 8.8 cm in length. Portal flow is towards the liver (hepatopetal). Shear wave liver elastography median stiffness is 1.27 m/s (reference: normal median stiffness is 1.3 m/s or less). IQR/median stiffness to assess sampling precision is 0.10 (reference: good quality data set is IQR/median stiffness of 0.15 or less). GALLBLADDER: Normal. The gallbladder is physiologically distended without evidence of stones, sludge, polyps, wall thickening or pericholecystic fluid. COMMON BILE DUCT: Normal in caliber measuring 0.5 cm in diameter. RIGHT KIDNEY: Normal. No hydronephrosis. No renal calculi or focal parenchymal lesions. The kidney measures 9.3 cm in maximum dimension. LEFT KIDNEY: Normal. No hydronephrosis. No renal calculi or focal parenchymal lesions. The kidney measures 10.2 cm in maximum dimension. SPLEEN: Normal. The spleen measures 10.3 cm in maximum dimension. FREE FLUID: None. US/US abdomen comp w elastography IMPRESSION: 1. There is slight generalized increase in hepatic echotexture, consistent with fatty infiltration or hepatocellular disease. Please correlate clinically. No focal hepatic mass or intrahepatic biliary dilatation is seen. 2. Liver elastography: Measurements are consistent with a high probability of normal liver stiffness. 3. Technically limited ultrasound examination, in particular of the pancreas and abdominal great vessels. REFERENCE: Society of Radiologists in Ultrasound Liver Stiffness Thresholds (2020): LIVER STIFFNESS THRESHOLDS: *Liver Stiffness equal or less than 1.3 m/s: High probability of being normal. *Liver Stiffness less than 1.7 m/s: In the absence of other known clinical signs, rules out compensated advanced chronic liver disease. *Liver Stiffness 1.7-2.1 m/s: Suggestive of compensated advanced chronic liver disease but need further test for confirmation. *Liver Stiffness over 2.1 m/s: Rules in compensated advanced chronic liver disease. *Liver Stiffness over 2.4 m/s: Suggestive of clinically significant portal hypertension. QUALITY OF DATA SET: *IQR/Median value equal or less than 0.15 implies a quality data set. *IQR/Median value over 0.15 implies a poor quality data set. SIGNIFICANT CHANGE FROM PRIOR EXAM: Significant change if liver stiffness measurement is 10% or greater from prior exam. OTHER CONSIDERATIONS: The stage of liver fibrosis may be overestimated in the setting of acute hepatitis, liver inflammation, elevated liver function tests, hepatic vascular congestion, obstructive cholestasis, non-fasting state, and infiltrative diseases such as amyloidosis and lymphoma. In some patients with NAFLD, the liver stiffness thresholds for compensated advanced chronic liver disease may be lower. In causes other than viral hepatitis and NAFLD, liver stiffness thresholds are not well established.
== END 2023-03-21 08:15 | disposition home or self-care (01) ==
LOC: HO.US 08:14
PROVIDERS: PCP Internal Medicine; Visit Provider Physician Assistant
DX: E66.01 Morbid (severe) obesity due to excess calories (principal); E28.2 Polycystic ovarian syndrome
CPT/HCPCS: 76705; 76981

== ENCOUNTER 2023-03-26 10:29 | Outpatient (AMB) | payer OTHER, SELFPAY ==
--- NOTE | 2023-03-26 10:37 | MHC.OFFVISWM ---
Intake VS Expanded 03/26/23 10:48 Height 5 ft 6 in Weight 323 lb BMI 52.1 BP 133/63 Blood Pressure Location Rt brachial Blood Pressure Position Sitting Pulse 98 Pulse Source Pulse Oximeter Temp 96.9 F Temperature Source Tympanic Pulse Oximetry 98 Oxygen Delivery Method Room Air Body Fat 171.0 Body Fat Percentage 53.0 Free Fat Mass 151.8 Muscle Mass 144.2 Visceral Mass 17.0 Water Mass 109.2 BMR 2,260 Intake Visit Reasons: (OV) F/U SWL Allergies aloe Allergy (Intermediate, Verified 03/26/23 10:41) Hives guaifenesin [From ROBITUSSIN] Allergy (Intermediate, Verified 03/26/23 10:41) Rash Medication List - Last Reconciled 03/26/23 by LISA Vann-Soco cholecalciferol (vitamin D3) 50 mcg PO DAILY ferrous sulfate (iron) 325 mg PO BID melatonin 10 mg PO BEDTIME PRN 90 days metformin 500 mg PO DAILY sertraline 100 mg PO DAILY 90 days vitamin A palmitate 6,000 mcg (2 x 3,000 mcg (10,000 unit)) PO DAILY 2 weeks HPI HPI Comments History of Present Illness Details This is the patients second appt for SWL. Starting weight was 339.4 lbs on 02/24/23. TBWL is 16.4 lbs or 4.8% TBWL. Meal plan:happy with meal plan - struggling with finding vegetables she likes days off - 12/3/6/9pm - 2 shakes, 1 meal and yogurt or bar work days - hard to schedule meal times. gets to work 7:30, leaves at 8pm, no scheduled breaks. Meal at 1:30 pm. 9am - shake, bar at 4pm, shake at 8pm. Exercise plan: VR boxing or dancing 2-3 d/week. 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 Sister No problems noted. Maternal Uncle Diabetes Family/Other Breast cancer Other Mental health disorder Social History Household Members: None Housing: Apartment Alcohol intake: current Alcohol intake frequency: holidays/special occasions only Patient Tobacco Use Status: Never used Tobacco Second Hand Smoke Exposure: No service: No Current occupational status: employed and unemployed Sexual orientation: Straight/Heterosexual Gender identity: Female Cognitive needs: No Hearing needs: No Vision needs: Yes Female Reproductive History Menstrual Age of Menarche: 12 Physical Exam Vital Signs: Last Vital Signs Temp 96.9 F 03/26/23 10:48 Pulse 98 03/26/23 10:48 BP 133/63 03/26/23 10:48 Pulse Ox 98 03/26/23 10:48 Oxygen Delivery Method Room Air 03/26/23 10:48 BMI result Body Mass Index 52.1 Assessment & Plan Assessment & Plan (1) Morbid obesity: Code(s): E66.01 - Morbid (severe) obesity due to excess calories Plan: Very good start with 16.4 lbs lost and good meal plan. No changes to meal plan - will continue to experiment with vegetables. Exercise - 5d/ week -- VR - 2-3 d/week, walk outside 2 miles in 45 minutes)or LS videos for total 5d/ week. Was started on metformin by donkey doctor. All appts reviewed with patient, next aptp with me in 3 weeks. Patient is morbidly obese and is not considered stable at this time. I spent 30 minutes in total with patient reviewing/updating records, examining the patient and counseling the patient on weight management as detailed above. Coding Level of Care Code Est Pt Level 4 (23721) Diagnoses Morbid obesity E66.01
[2023-03-26 10:48] VITALS: BP 133/63; PULSE 98; TEMP 36.1; O2SAT 98; BMI 52.1
== END 2023-03-26 11:16 | disposition home or self-care (01) ==
PROVIDERS: PCP Internal Medicine; Visit Provider Physician Assistant
DX: E66.01 Morbid (severe) obesity due to excess calories (principal); Z68.43 Body mass index [BMI] 50.0-59.9, adult
CPT/HCPCS: 99213

== ENCOUNTER → 2023-03-26 10:29 | Outpatient (BNVA) | payer OTHER, SELFPAY | PROVIDERS: PCP Internal Medicine; Visit Provider Physician Assistant | DX: E66.01 Morbid (severe) obesity due to excess calories (principal); E28.2 Polycystic ovarian syndrome; F90.9 Attention-deficit hyperactivity disorder, unspecified type ==

== ENCOUNTER 2023-04-18 10:58 | Outpatient (AMB) | payer OTHER, SELFPAY ==
--- NOTE | 2023-04-18 10:14 | MHC.OFFVISWM ---
Intake VS Expanded 04/18/23 11:05 BP 129/60 Blood Pressure Location Rt brachial Blood Pressure Position Sitting Pulse 107 H Pulse Source Pulse Oximeter Temp 97.4 F Temperature Source Temporal Artery Scan Pulse Oximetry 98 Oxygen Delivery Method Room Air Height 5 ft 6 in Weight 320 lb 3.2 oz BMI 51.7 Body Fat % 52.3 Body Fat Mass 167.6 Fat Free Mass 152.6 Visceral Fat Rating 17.0 Body Water % 34.2 Body Water Mass 109.6 Muscle Mass/Score 144.8 Basal Metabolic Rate/Score 2,263 Intake Visit Reasons: (OV) F/U SWL Allergies aloe Allergy (Intermediate, Verified 04/18/23 11:03) Hives guaifenesin [From ROBITUSSIN] Allergy (Intermediate, Verified 04/18/23 11:03) Rash HPI HPI Comments History of Present Illness Details This is the patients third appt for restart of SWL. Starting weight was 339.4 lbs on 01/22/23. TBWL is 22.2 lbs or 6.5%. Pt states she has been struggling with bingeing again - stressors at work and home - but she is not sure what triggered this. She is feeling unsure about the permanence of LSG procedure. Meal plan not discussed today . 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 Sister No problems noted. Maternal Uncle Diabetes Family/Other Breast cancer Other Mental health disorder Social History Household Members: None Housing: Apartment Alcohol intake: current Alcohol intake frequency: holidays/special occasions only Patient Tobacco Use Status: Never used Tobacco Second Hand Smoke Exposure: No service: No Current occupational status: employed and unemployed Sexual orientation: Straight/Heterosexual Gender identity: Female Cognitive needs: No Hearing needs: No Vision needs: Yes Female Reproductive History Menstrual Age of Menarche: 12 Assessment & Plan Assessment & Plan (1) Morbid obesity: Code(s): E66.01 - Morbid (severe) obesity due to excess calories Plan: We discussed options for self soothing that arent food related, she is unsure of what her options are. But is willing to try now. We also talked about how regular exercise can be extremely helpful in terms of calming herself. 11 am - 4d/ week - LS 2 mile videos, modify as needed. Appt withSri being scheduled today - she never had follow up appt. Me in 4 weeks. Gastric balloon discussed per her request. Patient is morbidly obese and is not considered stable at this time. I spent 30 minutes in total with patient reviewing/updating records, examining the patient and counseling the patient on weight management as detailed above. (2) Binge eating: Code(s): R63.2 - Polyphagia Coding Level of Care Code Est Pt Level 4 (01052) Diagnoses Morbid obesity E66.01 Binge eating R63.2
[2023-04-18 11:05] VITALS: BP 129/60; PULSE 107; TEMP 36.3; O2SAT 98; BMI 51.7
== END 2023-04-18 11:39 | disposition home or self-care (01) ==
PROVIDERS: PCP Internal Medicine; Visit Provider Physician Assistant
DX: E66.01 Morbid (severe) obesity due to excess calories (principal); Z68.43 Body mass index [BMI] 50.0-59.9, adult; R63.2 Polyphagia
CPT/HCPCS: 99214

== ENCOUNTER → 2023-04-18 10:58 | Outpatient (BNVA) | payer OTHER, SELFPAY | PROVIDERS: PCP Internal Medicine; Visit Provider Physician Assistant | DX: E66.01 Morbid (severe) obesity due to excess calories (principal); R63.2 Polyphagia; Z68.43 Body mass index [BMI] 50.0-59.9, adult | CPT/HCPCS: 99212 ==

== ENCOUNTER → 2023-04-28 11:21 | Outpatient (BNVA) | payer OTHER, SELFPAY | PROVIDERS: PCP Internal Medicine; Visit Provider Dietitian, Registered | DX: E66.01 Morbid (severe) obesity due to excess calories (principal) | CPT/HCPCS: 97803 ==

== ENCOUNTER 2023-05-28 21:33 | Emergency (ER) | payer OTHER, SELFPAY ==
--- NOTE | 2023-05-28 | ECG_ITS ---
Test Reason : UPPER RESPIRATORY Blood Pressure : / mmHG Vent. Rate : 097 BPM Atrial Rate : 097 BPM P-R Int : 130 ms QRS Dur : 082 ms QT Int : 354 ms P-R-T Axes : 043 050 020 degrees QTc Int : 449 ms Normal sinus rhythm Normal ECG When compared with ECG of 28-FEB-2023 06:27, No significant change was found Referred By: Generic ED Physician Electronically Signed By:ANYA WILLIAM MD
--- NOTE | ~2023-05-28 | XR_ITS ---
EXAMINATION: XR CHEST CLINICAL INFORMATION: Cough. Shortness of breath. COMPARISON: Previous chest x-ray February 2023 TECHNIQUE: 2 views of the chest were obtained. FINDINGS: No significant abnormality is noted involving the heart, lungs, mediastinum, bony thorax or soft tissues. XR/XR chest 2V IMPRESSION: Unremarkable examination.
[2023-05-28 21:49] VITALS: BP 135/69; PULSE 110; RESP 18; TEMP 36.8; O2SAT 100; BMI 52.3
--- NOTE | 2023-05-28 22:49 | ED.GENADULT ---
HPI - General Adult General Chief complaint: Upper Respiratory Symptoms Stated complaint: pneumonia not better Time Seen by Provider: 05/28/23 22:21 Source: patient Mode of arrival: ambulatory History of Present Illness HPI narrative: 27-year-old female who states that she was diagnosed with pneumonia on 04/22 but she is continued to have coughing/shortness of breath with chest tenderness and finished her course of oral antibiotics with minimal improvement. She did start on a prednisone taper 3 days ago but states she has not had any relief of symptoms but has had some improvement with the albuterol inhaler. Related Data Home Medications Medication Instructions Recorded Confirmed metformin 500 mg tablet 500 mg PO DAILY 03/26/23 03/26/23 Previous Rx's Medication Instructions Recorded sertraline 100 mg tablet 100 mg PO DAILY 90 days #90 tabs 04/25/21 cholecalciferol (vitamin D3) 50 50 mcg PO DAILY #30 caps 02/28/23 mcg (2,000 unit) capsule vitamin A palmitate 3,000 mcg 6,000 mcg (2 x 3,000 mcg (10,000 03/06/23 (10,000 unit) tablet unit)) PO DAILY 2 weeks #28 tabs melatonin 10 mg capsule 10 mg PO BEDTIME PRN sleep 90 days 03/07/23 #90 caps ferrous sulfate 325 mg (65 mg 325 mg PO BID #60 tabs 03/11/23 iron) tablet (iron) Allergies Allergy/AdvReac Type Severity Reaction Status Date / Time aloe Allergy Intermediate Hives Verified 05/28/23 21:49 guaifenesin [From ROBITUSSIN] Allergy Intermediate Rash Verified 05/28/23 21:49 Review of Systems Review of Systems: pertinent positives and negatives as stated in HPI [facility] Past Medical History Source: nursing notes reviewed Medical History Hepatitis B immune Anxiety Depression Morbid obesity Extreme obesity Gall stone Insomnia Back pain History of PCOS History of anxiety Surgical History History of surgery Hx of cholecystectomy Family History Family History Maternal Grandmother Diabetes Mother Migraine Father No problems noted. Sister No problems noted. Maternal Uncle Diabetes Family/Other Breast cancer Other Mental health disorder Social History Social History Household Members: None Housing: Apartment Alcohol intake: current Alcohol intake frequency: holidays/special occasions only Patient Tobacco Use Status: Never used Tobacco Second Hand Smoke Exposure: No service: No Current occupational status: employed and unemployed Sexual orientation: Straight/Heterosexual Gender identity: Female Cognitive needs: No Hearing needs: No Vision needs: Yes Physical Exam ED Vital Signs: Vital Signs - 24 hr 05/28/23 21:49 05/28/23 22:52 05/29/23 00:14 Temperature 98.2 F 99.7 F Pulse Rate 110 H 102 H Respiratory Rate 18 18 Blood Pressure 135/69 135/77 Pulse Oximetry 100 97 100 Oxygen Delivery Method Room Air Room Air Room Air 05/29/23 01:27 05/29/23 01:46 05/29/23 02:17 Temperature 97.9 F 99.3 F Pulse Rate 102 H 106 H 99 Respiratory Rate 18 18 19 Blood Pressure 133/78 133/70 126/70 Pulse Oximetry 97 Oxygen Delivery Method Room Air 05/29/23 04:10 Temperature 98.8 F Pulse Rate 97 Respiratory Rate 18 Blood Pressure 113/54 L Pulse Oximetry Oxygen Delivery Method BMI result Body Mass Index 52.3 VITAL SIGNS: Reviewed. GENERAL: Well developed, well nourished, in no acute distress. HEAD: Normocephalic/atraumatic EYES: PERRLA, EOMI EARS: Ext canals without abnormality NOSE: Nares patent bilateral OROPHARYNX: no oral lesions noted, posterior pharynx clear NECK: Supple, no adenopathy LUNGS: Normal breath sounds. No adventitious sounds or accessory muscle use. SpO2<100> CARDIOVASCULAR: Regular rate and rhythm without noted murmurs ABDOMEN: Soft, non-tender, non-distended with bowel sounds. MUSCULOSKELETAL: No tenderness, deformities, or effusions noted on gross inspection. EXTREMITIES: No cyanosis, clubbing or edema. SKIN: Inspection of the skin reveals no rashes NEUROLOGIC: Alert and oriented x 4. Strength and sensation to light touch were grossly intact x 4. Medications Administered Discontinued Medications Generic Name Dose Route Start Last Admin Trade Name Freq PRN Reason Stop Dose Admin Acetaminophen 975 mg 05/28/23 23:21 05/29/23 00:04 Acetaminophen 325 Mg Tablet PO 05/28/23 23:22 975 mg ONCE ONE Administration Sodium Chloride 100 mls @ 100 mls/hr 05/29/23 00:04 05/29/23 04:10 Ns IV 05/29/23 01:03 Infused ONCE ONE Infusion Sodium Chloride 500 mls @ 999 mls/hr 05/29/23 00:30 05/29/23 01:09 Ns IV 05/29/23 01:00 Infused .Q31M NGUYỄN Infusion Medical Decision Making Medical Decision Making MDM Narrative: 27-year-old female with history and clinical presentation, DDX: viral illness, pneumonia, No clinical suspicion for PE Review of all investigations and being notified by the hematology lab that patient's hemoglobin is 6.8. On discussing with the patient at bedside she states that she does have heavy menstrual bleeding that is currently on going. Hematologic indices demonstrate a leukocytosis that is secondary to patient's prednisone use as she is otherwise afebrile and no chest x-ray demonstrates pneumonia, patient does not have abdominal pain. Patient's hemoglobin is noted to be 6.8 with a hemoglobin of 24.7, there is no thrombocytopenia. Chemistry indices are grossly within normal limits without evidence of NILDA him there is no electrolyte or liver enzyme derangements, high sensitivity troponin is undetectable. Chest x-ray negative for infiltrate and otherwise my interpretation is in agreement with radiology's impression. I plan on repeating the H/H, obtaining type and screen as well as coags and ordering 1 unit of blood. This was discussed with the patient at bedside and she has been consented for blood transfusion of the 1 unit. 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 Differential Diagnosis Differential Diagnoses: The differential diagnosis associated with the presentation includes please see the discussion above Admission/Observation Consideration of admission/observation: Escalation of care including admission/observation considered please see the discussion above Lab Data [facility] Lab Attestation statement: I reviewed the patient's lab results. please see the discussion above 05/28/23 23:56 05/28/23 22:59 Labs: Lab Results 11/15/23 11/15/23 11/16/23 Range/Units 22:59 23:56 00:05 WBC 18.0 H (4.8-10.8) X10*3/uL RBC 3.64 L D (4.20-5.50) X10*6/uL Hgb 6.8 L* D 7.0 L* (12.0-16.0) g/dl Hct 24.7 L D 24.6 L (37.0-47.0) % MCV 67.9 L (80.0-98.0) fL MCH 18.7 L (27.0-33.0) pg MCHC 27.5 L (31.0-35.0) g/dl RDW 18.7 H (11.0-16.0) % Plt Count 649 H D (160-400) X10*3/uL MPV 8.6 L (9.4-12.3) fL Immature Gran % (Auto) 0.8 H (0.0-0.4) % Neut % (Auto) 61.4 (45-73) % Lymph % (Auto) 32.2 (20-40) % [place] % (Auto) 3.6 (2-11) % Eos % (Auto) 1.6 (0-4) % Baso % (Auto) 0.4 (0-2) % Lymph # (Auto) 5.8 H (1.2-4.9) X10*3/uL [place] # (Auto) 0.7 (0.1-1.2) X10*3/uL Eos # (Auto) 0.3 (0.0-0.4) X10*3/uL Baso # (Auto) 0.1 (0.0-0.2) X10*3/uL Abs Immat Gran (auto) 0.14 H (0.00-0.03) X10*3/uL Absolute Neuts (auto) 11.1 H (2.0-8.3) x10*3/uL Absolute Nucleated RBC 0.020 H (0.0-0.012) X10*3/uL Nucleated RBC % (auto) 0.1 (0.0-0.2) /100WBC Smear Tech's Comments VERIFIED PT 13.0 (11.1-13.3) SEC INR 1.1 (0.9-1.1) Sodium 141 (135-145) mmol/L Potassium 4.0 (3.3-5.1) mmol/L Chloride 104 (96-108) mmol/L Carbon Dioxide 29 (22-29) mmol/L Anion Gap 12 (12-20) BUN 16 (9-16) mg/dL Creatinine 0.83 (0.5-1.4) mg/dL Estim Creat Clear Calc 150.3 Estimated GFR > 60 Random Glucose 93 (60-115) mg/dL Calcium 8.2 L D (8.4-10.2) mg/dL Total Bilirubin 0.1 (0.0-1.0) mg/dL AST 10 (5-31) U/L ALT 10 (0-31) U/L Alkaline Phosphatase 80 (39-117) U/L Troponin I High Sens < 2.7 (<3.5-17.0) ng/L Total Protein 6.2 L (6.5-8.0) g/dL Albumin 3.5 (3.5-5.0) g/dL Beta HCG, Quant < 2 mIU/mL Urine Color Yellow Urine Appearance Clear Urine pH 6.5 (5.0-9.0) Ur Specific [place] 1.020 (1.005-1.025) Urine Protein Negative (Neg-Trace) mg/dL Urine Glucose (UA) Negative (Negative) mg/dL Urine Ketones Negative (Negative) mg/dL Urine Blood Negative (Negative) Urine Nitrite Negative (Negative) Ur Leukocyte Esterase Trace H (Negative) Urine RBC 3-5 H (0-2) /HPF Urine WBC 0-5 (0-5) /HPF Ur Squamous Epith Cells 0-2 (0-2) /HPF Urine Bacteria None Seen (None Seen) Hyaline Casts 0-2 (0-2) /LPF Influenza Type A (PCR) NEGATIVE (Negative) Influenza Type B (PCR) NEGATIVE (Negative) RSV RNA Qual (PCR) NEGATIVE (Negative) SARS-CoV-2 RNA (RT-PCR) NEGATIVE (Negative) Blood Type Antibody Screen Crossmatch 05/29/23 Range/Units 00:10 WBC (4.8-10.8) X10*3/uL RBC (4.20-5.50) X10*6/uL Hgb (12.0-16.0) g/dl Hct (37.0-47.0) % MCV (80.0-98.0) fL MCH (27.0-33.0) pg MCHC (31.0-35.0) g/dl RDW (11.0-16.0) % Plt Count (160-400) X10*3/uL MPV (9.4-12.3) fL Immature Gran % (Auto) (0.0-0.4) % Neut % (Auto) (45-73) % Lymph % (Auto) (20-40) % [place] % (Auto) (2-11) % Eos % (Auto) (0-4) % Baso % (Auto) (0-2) % Lymph # (Auto) (1.2-4.9) X10*3/uL [place] # (Auto) (0.1-1.2) X10*3/uL Eos # (Auto) (0.0-0.4) X10*3/uL Baso # (Auto) (0.0-0.2) X10*3/uL Abs Immat Gran (auto) (0.00-0.03) X10*3/uL Absolute Neuts (auto) (2.0-8.3) x10*3/uL Absolute Nucleated RBC (0.0-0.012) X10*3/uL Nucleated RBC % (auto) (0.0-0.2) /100WBC Smear Tech's Comments PT (11.1-13.3) SEC INR (0.9-1.1) Sodium (135-145) mmol/L Potassium (3.3-5.1) mmol/L Chloride (96-108) mmol/L Carbon Dioxide (22-29) mmol/L Anion Gap (12-20) BUN (9-16) mg/dL Creatinine (0.5-1.4) mg/dL Estim Creat Clear Calc Estimated GFR Random Glucose (60-115) mg/dL Calcium (8.4-10.2) mg/dL Total Bilirubin (0.0-1.0) mg/dL AST (5-31) U/L ALT (0-31) U/L Alkaline Phosphatase (39-117) U/L Troponin I High Sens (<3.5-17.0) ng/L Total Protein (6.5-8.0) g/dL Albumin (3.5-5.0) g/dL Beta HCG, Quant mIU/mL Urine Color Urine Appearance Urine pH (5.0-9.0) Ur Specific [place] (1.005-1.025) Urine Protein (Neg-Trace) mg/dL Urine Glucose (UA) (Negative) mg/dL Urine Ketones (Negative) mg/dL Urine Blood (Negative) Urine Nitrite (Negative) Ur Leukocyte Esterase (Negative) Urine RBC (0-2) /HPF Urine WBC (0-5) /HPF Ur Squamous Epith Cells (0-2) /HPF Urine Bacteria (None Seen) Hyaline Casts (0-2) /LPF Influenza Type A (PCR) (Negative) Influenza Type B (PCR) (Negative) RSV RNA Qual (PCR) (Negative) SARS-CoV-2 RNA (RT-PCR) (Negative) Blood Type O Positive Antibody Screen NEGATIVE Crossmatch See Detail Independent Interpretation I performed an independent interpretation of an: EKG Interpretation: Normal sinus rhythm, HR - 97, no STEMI, SD /QRS /QTC is within normal limits. Radiology Impression Discussion of test interpretation with radiology: I have reviewed the radiologist's reading. Radiologist Impression: Please see the discussion above External Record Review External record reviewed: Outpatient record, Prior outpatient labs and Prior outpatient radiology Critical Care Time Critical Care Time Critical Care Time: Yes Total Critical Care Time: 45 Attestation: I personally attest to this time spent taking care of the patient. Discharge Plan Discharge Clinical Impression: Abnormal uterine bleeding (AUB), Menorrhagia, Symptomatic anemia Patient Disposition: Home, Self-Care Instructions: Menorrhagia (ED), Dysfunctional Uterine Bleeding (ED), Anemia (ED) Additional Instructions: please follow-up with your program director/air personality at your earliest convenience. Prescriptions: No Action sertraline 100 mg tablet 100 mg PO DAILY 90 Days Qty: 90 1RF cholecalciferol (vitamin D3) 50 mcg (2,000 unit) capsule 50 mcg PO DAILY Qty: 30 4RF vitamin A palmitate 3,000 mcg (10,000 unit) tablet 6,000 mcg PO DAILY 14 Days Qty: 28 0RF melatonin 10 mg capsule 10 mg PO BEDTIME PRN (Reason: sleep) 90 Days Qty: 90 0RF ferrous sulfate [iron] 325 mg (65 mg iron) Tablet 325 mg PO BID Qty: 60 3RF metformin 500 mg tablet 500 mg PO DAILY Referrals: Bonny Lamas MD [Primary Care Provider] -
[2023-05-28 22:52] VITALS: O2SAT 97
[2023-05-28 23:14] LABS: Basophils Absolute Auto 0.1 X10*3/uL (0.0-0.2); Basophils Percent Auto 0.4 % (0-2); Eosinophils Absolute Auto 0.3 X10*3/uL (0.0-0.4); Eosinophils Percent Auto 1.6 % (0-4); Hematocrit 24.7 % (37.0-47.0); Imm Gran Abs Auto 0.14 X10*3/uL (0.00-0.03); Imm Gran Pct Auto 0.8 % (0.0-0.4); Lymphocytes Absolute Auto 5.8 X10*3/uL (1.2-4.9); Lymphocytes Percent Auto 32.2 % (20-40); MANUAL DIFF FLAG SCAN; Mean Corpuscular HGB Conc 27.5 g/dl (31.0-35.0); Mean Corpuscular Hemoglobin 18.7 pg (27.0-33.0); Mean Corpuscular Volume 67.9 fL (80.0-98.0); Mean Platelet Volume 8.6 fL (9.4-12.3); Monocytes Absolute Auto 0.7 X10*3/uL (0.1-1.2); Monocytes Percent Auto 3.6 % (2-11); NRBC Pct Auto 0.1 /100WBC (0.0-0.2); Neutrophils Absolute Auto 11.1 x10*3/uL (2.0-8.3); Neutrophils Percent Auto 61.4 % (45-73); Platelet Count 649 X10*3/uL (160-400); Red Blood Count 3.64 X10*6/uL (4.20-5.50); Red Cell Distribution Width 18.7 % (11.0-16.0); SCAN SMEAR FLAG 1
[2023-05-28 23:20] LABS: Alanine Aminotransferase 10 U/L (0-31); Albumin Level 3.5 g/dL (3.5-5.0); Alkaline Phosphatase 80 U/L (39-117); Anion Gap 12 (12-20); Aspartate Amino Transferase 10 U/L (5-31); Bilirubin Total 0.1 mg/dL (0.0-1.0); Blood Urea Nitrogen 16 mg/dL (9-16); Calcium 8.2 mg/dL (8.4-10.2); Carbon Dioxide 29 mmol/L (22-29); Chloride 104 mmol/L (96-108); Creatinine Clr Calc Pharmacy 150.3; Estimated Glomerular Filt Rate > 60; Glucose Random 93 mg/dL (60-115); Sodium 141 mmol/L (135-145); Total Protein 6.2 g/dL (6.5-8.0)
[2023-05-28 23:28] LABS: Hemoglobin 6.8 g/dl (12.0-16.0)
[2023-05-28 23:29] LABS: Troponin-I High Sensitivity < 2.7 ng/L (<3.5-17.0)
[2023-05-28 23:41] LABS: SLIDE REVIEW VERIFIED
[2023-05-28 23:43] LABS: Influenza A PCR NEGATIVE (Negative); Influenza B PCR NEGATIVE (Negative); Resp Syncy Virus RNA Qual PCR NEGATIVE (Negative); SARS COV2 PCR INHOUSE NEGATIVE (Negative)
[2023-05-29 00:04] LABS: HCG Quantitative < 2 mIU/mL
[2023-05-29] MEDS: Acetaminophen 325 MG TABLET 975 MG PO (00:04)
[2023-05-29 00:08] LABS: Hematocrit 24.6 % (37.0-47.0)
[2023-05-29 00:14] VITALS: BP 135/77; PULSE 102; RESP 18; TEMP 37.6; O2SAT 100
[2023-05-29 00:14] LABS: INTERNATIONAL NORM RATIO 1.1 (0.9-1.1)
--- NOTE | 2023-05-29 00:14 | PC.NURSE ---
Consent for transfusion obtained by Dr. Carcamo with patient. bilat iv established. pt low grade temp 99.7F Dr. Carcamo aware states ok to transfuse. repeat labs as well as type and screen obtained and sent to lab. ua sent to lab. pt medicated per sep. pt denies cp/dizziness/v at this time reports some nausea. crackers given per dr carcamo approval to help sx.
[2023-05-29 00:26] LABS: Appearance Urine Clear; Color Urine Yellow; Glucose Urine UA Negative (Negative); Leukocyte Esterase Urine Trace (Negative); Nitrite Urine Negative (Negative); PH 6.5 (5.0-9.0); UMIC TRIGGER UACC YES; Urine Blood Negative (Negative); Urine Ketones Negative (Negative); Urine Protein Negative (Neg-Trace)
[2023-05-29] MEDS: 0.9 % Sodium Chloride 500 ML 999 ML IV (00:28)
[2023-05-29 00:29] LABS: Bacteria Urine None Seen (None Seen); Hyaline Casts Urine 0-2 /LPF (0-2); Squamous Epithelial Cell Urine 0-2 /HPF (0-2); WBC Urine 0-5 /HPF (0-5)
[2023-05-29 01:27] VITALS: BP 133/78; PULSE 102; RESP 18; TEMP 36.6
--- NOTE | 2023-05-29 01:31 | PC.NURSE ---
blood infusing pt afebrile vss 102 bpm on monitor nsr. this RN at bedside for initial 15 min. Blood verified with amrit nath.
[2023-05-29 01:46] VITALS: BP 133/70; PULSE 106; RESP 18; TEMP 37.4
--- NOTE | 2023-05-29 01:53 | PC.NURSE ---
slight elevation noted in temp after initial 15 min infusion; no other sx at this time. Dr. Carcamo notified; to continue with infusion. per Dr. Carcamo verbal order infusion set at faster rate; to infuse within 2 hours rate set at 155 mL/hr.
[2023-05-29 02:17] VITALS: BP 126/70; PULSE 99; RESP 19; O2SAT 97
[2023-05-29 04:10] VITALS: BP 113/54; PULSE 97; RESP 18; TEMP 37.1
== END 2023-05-29 04:36 | disposition home or self-care (01) ==
PROVIDERS: Emergency Provider Student in an Organized Health Care Education/Training Program; PCP Internal Medicine
DX: N92.0 Excessive and frequent menstruation with regular cycle (principal); D64.9 Anemia, unspecified; N93.8 Other specified abnormal uterine and vaginal bleeding; R05.9 Cough, unspecified; R06.02 Shortness of breath; R07.89 Other chest pain; Z20.822 Contact with and (suspected) exposure to COVID-19; Z20.828 Contact with and (suspected) exposure to other viral communicable diseases; Z79.899 Other long term (current) drug therapy
CPT/HCPCS: 0241U; 36415; 36430; 71046; 80053; 81001; 84484; 84702; 85014; 85018; 85025; 85610; 86850; 86900; 86901; 86923; 93005; 96360; 96361; 99285; P9016

== ENCOUNTER 2023-08-25 09:55 | Outpatient (AMB) | payer OTHER, SELFPAY ==
--- NOTE | 2023-08-25 10:18 | MHC.OFFWIV ---
Intake Vital Signs 08/25/23 10:32 Height 5 ft 6 in Weight 328 lb 9 oz BMI 53.0 BP 134/74 Blood Pressure Location Rt brachial Position Sitting Pulse 110 H Pulse Source Pulse Oximeter Temp 97.9 F Temp Source Oral Pulse Oximetry (%) 99 Oxygen Delivery Method Room Air Intake Visit Reasons: EP Rt eye swollen Lt ear blocked Intake Note: Pt is here c/o right swollen eye since yesterday morning. Pt states she also had a fever last week and is now experiencing left ear discomfort. Patient Tobacco Use Status: Never used Tobacco Allergies aloe Allergy (Intermediate, Verified 08/25/23 10:33) Hives guaifenesin [From ROBITUSSIN] Allergy (Intermediate, Verified 08/25/23 10:33) Rash benzonatate Adverse Reaction (Verified 08/25/23 11:20) Numbness Do you need a note to return to daycare/school/sports/work: No HPI HPI Comments History of Present Illness Details Patient presents to the walk in for 4 days cough, sinus congestion, intermittent ear pain, sore throat Also endorses right eye redness and crusty drainage for last one day Denies fever, chest pain, shortness of breath, palpitations, syncope, weakness Cough non-productive She has not taken any OTC or prescription medications since she started feeling sick [facility] Medical History Hepatitis B immune Anxiety Depression Morbid obesity Extreme obesity Gall stone Insomnia Back pain History of PCOS History of anxiety Surgical History History of surgery Hx of cholecystectomy Family History Maternal Grandmother Diabetes Mother Migraine Father No problems noted. Sister No problems noted. Maternal Uncle Diabetes Family/Other Breast cancer Other Mental health disorder Social History Household Members: None Housing: Apartment Alcohol intake: current Alcohol intake frequency: holidays/special occasions only Patient Tobacco Use Status: Never used Tobacco Second Hand Smoke Exposure: No service: No Current occupational status: employed and unemployed Sexual orientation: Straight/Heterosexual Gender identity: Female Cognitive needs: No Hearing needs: No Vision needs: Yes Female Reproductive History Menstrual Age of Menarche: 12 Review of Systems Const All systems reviewed & are unremarkable except as noted in HPI and below Physical Exam Vital Signs: Last Vital Signs Temp 97.9 F 08/25/23 10:32 Pulse 110 H 08/25/23 10:32 BP 134/74 08/25/23 10:32 Pulse Ox 99 08/25/23 10:32 Oxygen Delivery Method Room Air 08/25/23 10:32 BMI result Body Mass Index 53.0 General: awake, alert, oriented. Answers questions appropriately. Fully engaged in examination. Skin: warm, dry, intact HEENT: Normocephalic. Hearing intact. right eye: + mucoid discharge, conjunctival injection. PERRL. EOMs intact posterior pharynx erythematous with postnasal drip present bilateral TMs intact, cerumen bilaterally. negative erythema or exudate Cardiac: External chest normal in appearance. Respiratory: Dry cough. LSCTAB. Abdomen: without gross distension. MS: No obvious swelling or deformities. Neurological: Oriented to person, place, time and situation. Thought process intact. Psychiatric: Appropriate mood and affect. Good judgment and insight. Results AMB Rapid Strep AMB Rapid Strep Negative Last Edit by Sylvie Muhammad CMA on 08/25/23 11:06 Results Reviewed Results Reviewed: Laboratory Last Values Strep Scn Rapid Clinic Negative 08/25/23 11:05 Assessment & Plan Assessment & Plan (1) URI (upper respiratory infection): Code(s): J06.9 - Acute upper respiratory infection, unspecified (2) Conjunctivitis: Code(s): H10.9 - Unspecified conjunctivitis Plan URI, no abx warranted. dextromethorphan polistirex ER bid polymyxin B sulf-trimethoprim 10,000 unit- 1 mg/mL to right eye QID Rest, drink plenty of fluids, tylenol or motrin as needed. Recommend taking OTC nasal decongestants or flonase. Follow up with pcp or in clinic for any new or worsening symptoms. Go to ER for shortness of breath, chest pain, palpitations, weakness, dizziness. Orders: Orders AMB Rapid Strep Screen 08/25/23 Z13.9 - Encounter for screening, unspecified Medications: New dextromethorphan polistirex ER 10 mL PO Q12H PRN 89 mL 0RF cough polymyxin B sulf-trimethoprim 10,000 unit- 1 mg/mL while awake; do not exceed 6 doses in 24 hours 1 drp ophthalmic (eye) QID 7 days 10 mL 0RF Coding Level of Care Code Est Pt Level 4 (70110) Diagnoses URI (upper respiratory infection) J06.9 Conjunctivitis H10.9
[2023-08-25 10:32] VITALS: BP 134/74; PULSE 110; TEMP 36.6; O2SAT 99; BMI 53.0
== END 2023-08-25 11:23 | disposition home or self-care (01) ==
PROVIDERS: PCP Internal Medicine; Visit Provider Registered Nurse Emergency
DX: J02.9 Acute pharyngitis, unspecified (principal)
CPT/HCPCS: 87880; 99213

== ENCOUNTER 2023-10-24 13:39 | Outpatient (AMB) | payer OTHER, SELFPAY ==
[2023-10-24 14:23] VITALS: BP 132/82
--- NOTE | 2023-10-24 14:23 | A.OFFVIS_ITS ---
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 Present (Shena) Allergies aloe Allergy (Intermediate, Verified 10/24/23 14:24) Hives guaifenesin [From ROBITUSSIN] Allergy (Intermediate, Verified 10/24/23 14:24) Rash benzonatate Adverse Reaction (Verified 10/24/23 14:24) Numbness Medication List - Last Reconciled 10/24/23 by Pia Mcconnell CNM albuterol sulfate 90 mcg/actuation (Ventolin HFA) inhalation prednisone 20 mg PO BID Is last menstrual period known: Yes Last menstrual period: 10/20/23 Post menopausal: No 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 Much of her history slowly trickle down during the visit not necessarily in the order of when history was taken Review of the chart revealed labs and ultrasounds that have been ordered patient states she was not able did not come for the follow-up visits. She says that she has not been eating because she is stressed so she has lost a few lb. She has a history obesity and had wondered about PCOS at the last time that she and I had a visit and that is when many labs and ultrasounds were done and ordered. [facility] Medical History Hepatitis B immune Anxiety Depression Morbid obesity Extreme obesity Gall stone Insomnia Back pain History of PCOS History of anxiety Surgical History History of surgery Hx of cholecystectomy Family History (Updated 10/24/23 @ 14:26 by POLA Craig) Maternal Grandmother Diabetes Ovarian cancer Mother Migraine Father No problems noted. Sister No problems noted. Maternal Uncle Diabetes Family/Other Breast cancer Other Mental health disorder Social History Household Members: None Housing: Apartment Alcohol intake: current Alcohol intake frequency: holidays/special occasions only Patient Tobacco Use Status: Never used Tobacco Second Hand Smoke Exposure: No service: No Current occupational status: employed and unemployed Sexual orientation: Straight/Heterosexual Gender identity: Female Cognitive needs: No Hearing needs: No Vision needs: Yes Female Reproductive History Menstrual Age of Menarche: 12 Duration of menses: 6-7 days Date of last menstrual period: 10/20/23 control method: none Total pregnancies: 0 Date of last pap smear: 07/23/19 (negative) History of abnormal pap smear: No Physical Exam Vital Signs: Last Vital Signs BP 132/82 10/24/23 14:23 Const General: healthy appearing, comfortable, no acute distress, well developed and alert Nutritional Appearance: average body habitus Orientation/consciousness: patient oriented x3 Limitations: no limitations HEENT Head: Yes normocephalic Neck Neck: Yes normal visual inspection Chest Other: Breast exam within normal limits no masses. Chest palpation & inspection: normal inspection of the chest Breast/axilla inspection: normal inspection of the breasts and normal inspection of the axillae Breast/axilla palpation: normal palpation of the breasts and normal palpation of the axillae Resp Effort & Inspection: normal respiratory effort GI Inspection: Yes normal to inspection, No Abdominal wall edema and No distended Palpation (GI): Soft to palpation and nontender Other: Challenging pelvic exam secondary to adipose tissue small skin tag on left thigh a what appears to be a skin tag Vagina pink and moist with moderate menses cervix tightly closed nulliparous with menses. Uterus difficult to feel secondary to adnexa nontender weak tone with Kegel coachedin Kegel's General: Yes bladder normal to palpation External Female Exam: normal external appearance and normal appearance of the urethra Speculum Exam - Vagina: normal appearance of the vagina, normal palpation and normal vaginal discharge Speculum Exam - Cervix: normal appearance of the cervix, normal palpation and nontender Bimanual exam- vagina & uterus: normal bimanual exam, normal palpation, uterine size normal, bladder normal to palpation, consistency normal, normal palpation, uterine mobility normal, uterine shape normal, No Cervical tenderness present, non-tender and no cervical motion tenderness Bimanual Exam- Adnexa, other: normal adnexae, no masses and No adnexal tenderness Neuro General: patient oriented x3 Results Reviewed Results Reviewed: Name: Cleve Rojo Age/Sex: 27/F : 1995 Unit#: [id number] Attend Dr: Mariana Carcamo MD Re05/28/23 Status: DEP ER Location: [facility] Disch: SPEC : [id number] MERY: 05/28/23 STATUS: COMP REQ : [id number] RECD: 05/28/[address] [facility] [address]: Mariana Carcamo MD COMP: 05/29/23 ENTERED: 05/28/23-[address]: Generic ED Physician Physician,Unknown ORDERED: CBC Auto Diff, SLIDE REVIEW, Path Review Test Result Flag Reference WBC 18.0 H 4.8-10.8 X10*3/uL RBC 3.64 # L 4.20-5.50 X10*6/uL HGB 6.8 #*L 12.0-16.0 g/dl Results of HGB called to and read back by SHANELLE on 05/28/23 at 2328 by EMMA. HCT 24.7 # L 37.0-47.0 % MCV 67.9 L 80.0-98.0 fL MCH 18.7 L 27.0-33.0 pg MCHC 27.5 L 31.0-35.0 g/dl RDW 18.7 H 11.0-16.0 % PLT 649 # H 160-400 X10*3/uL MPV 8.6 L 9.4-12.3 fL Neut Pct Auto 61.4 45-73 % ImGran Pct Auto 0.8 H 0.0-0.4 % Lymp Pct Auto 32.2 20-40 % [place] Pct Auto 3.6 2-11 % Eos Pct Auto 1.6 0-4 % Baso Pct Auto 0.4 0-2 % NRBC Pct Auto 0.1 0.0-0.2 /100WBC ANC Neut Abs # 11.1 H 2.0-8.3 x10*3/uL ImGran Abs Auto 0.14 H 0.00-0.03 X10*3/uL Lymph Abs Auto 5.8 H 1.2-4.9 X10*3/uL [place] Abs Auto 0.7 0.1-1.2 X10*3/uL Eos Abs Auto 0.3 0.0-0.4 X10*3/uL Baso Abs Auto 0.1 0.0-0.2 X10*3/uL NRBC Abs Auto 0.020 H 0.0-0.012 X10*3/uL SLIDE REVIEW VERIFIED Path Review SEE NOTE Variably hypochromic microcytic anemia with occasional elliptocytes. White blood cells are increased in number, but otherwise normal appearing. Please correlate with iron studies. - Roger Chaves M.D. Pathology Patient: Cleve RojoMR#: [id number]: 1995Acct:[id number]/Sex: Date: 01/31/23Loc: [facility] Dr: Pia Mcconnell CNM Ordering Physician: Pia Mcconnell CNM Date of Service: 01/31/23 Procedure(s): US pelvic and transvaginal Accession Number(s): [id number] cc: Pia Mcconnell CNM~ EXAMINATION: US PELVIS CLINICAL INFORMATION: Abnormal uterine and vaginal bleeding, last menstrual period 01/09/2023. COMPARISON: 08/29/2021. TECHNIQUE: Ultrasound of the pelvis is performed using both transabdominal and transvaginal transducers along with Doppler. Transvaginal imaging is performed due to inadequate visualization transabdominally. FINDINGS: The uterus is anteverted, heterogeneous and measures 7.2 x 3.1 x 4.3 cm. Nabothian cysts present. No discrete fibroids identified. Endometrial thickness is 1.2 cm and endometrium appears heterogeneous. There is no significant free fluid. Right ovary measures 4.4 x 2.8 x 2.5 cm, volume 16.1 mL. Left ovary measures 3.4 x 2.0 x 2.4 cm, volume 8.5 mL. Bilateral ovaries demonstrate multiple small peripheral follicles. US/US pelvic and transvaginal IMPRESSION: 1. Endometrium appears heterogeneous wit h thickness of 1.2 cm. 2. Right ovary larger in size than left. Multiple small peripheral follicles in the bilateral ovaries. Correlation with clinical and laboratory exam recommended if there is concern for polycystic ovarian syndrome. Gynecologic consultation recommended to determine further management Dictated By:Jennie Monte MDSigned By:<Electronically signed by Jennie Monte MD in OV>02/03/232025 DD/ 1141 SPEC : [id number] MERY: 01/28/23 STATUS: COMP REQ : [id number] RECD: 01/28/[address]: Pia Mcconnell CNM COMP: 01/28/23 ENTERED: 01/28/[address]: Bonny Lamas MD ORDERED: GTT 2 Hr Test Result Flag Reference Glucose Shandra 2Hr GLU FAST 104 ( H) Col: 01/28/23705 A fasting glucose from 100-125 mg/dl is considered impaired (pre-diabetes). GLU 1H 176 Col: 01/28/2323 GLU 2H 154 Col: 01/28/23 0918 Name: Cleve Rojo Age/Sex: 27/F : 1995 Unit#: [id number] Attend Dr: Pia Mcconnell CNM Re01/28/23 Status: DEP REF Location: .LAB Disch: SPEC : [id number] MERY: 01/28/23 STATUS: COMP REQ : [id number] RECD: 01/28/[address]: Pia Mcconnell CNM COMP: 02/02/238 ENTERED: 01/28/[address]: Bonny Lamas MD ORDERED: LH, DHEAS, Sex Hor Bin Jyothi, Testost Fr & T Test Result Flag Reference LH 6.1 mIU/mL Reference Range Follicular Phase 1.9-12.5 Mid-Cycle Peak 8.7-76.3 Luteal Phase 0.5-16.9 Postmenopausal 10.0-54.7 THIS TEST WAS PERFORMED AT: [facility] [address] [place] [id number] ALBERTO DIAZ MD DHEA-Sulfate 170 14-349 mcg/dL THIS TEST WAS PERFORMED AT: [facility] [address] [place] [address] ALBERTO DIAZ MD Sex Hor Bin Jyothi 25 17-124 nmol/L THIS TEST WAS PERFORMED AT: [facility] [address] [place] [address] ALBERTO DIAZ MD Testost, Tot 38 2-45 ng/dL For additional information, please refer to http://education.BigTwist/faq/ AiktmGbczgenylsguWSFKUUABV627 (This link is being provided for informational/ educational purposes only.) This test was developed and its analytical performance characteristics have been determined by [facility] [place], [place]. It has not been cleared or approved by the U.S. Food and Drug Administration. This assay has been validated pursuant to the CLIA regulations and is used for clinical purposes. Testost, Free 5.7 0.1-6.4 pg/mL This test was developed and its analytical performance characteristics have been determined by [facility] [place], [place]. It has not been cleared or approved by the U.S. Food and Drug Administration. This assay has been validated pursuant to the CLIA regulations and is used for clinical purposes. THIS TEST WAS PERFORMED AT: [facility] [address] [address] ISABEL LANDERS MD,PHD Assessment & Plan Assessment & Plan (1) PCOS (polycystic ovarian syndrome): Code(s): E28.2 - Polycystic ovarian syndrome (2) Morbid obesity: Code(s): E66.01 - Morbid (severe) obesity due to excess calories (3) Extreme obesity: Code(s): E66.8 - Other obesity (4) Well woman exam with routine gynecological exam: Code(s): Z01.419 - Encounter for gynecological examination (general) (routine) without abnormal findings (5) Iron deficiency anemia: Code(s): D50.9 - Iron deficiency anemia, unspecified (6) PCOS (polycystic ovarian syndrome): Code(s): E28.2 - Polycystic ovarian syndrome (7) Obesity, morbid, BMI 50 or higher: Code(s): E66.01 - Morbid (severe) obesity due to excess calories (8) Cervical cancer screening: Code(s): Z12.4 - Encounter for screening for malignant neoplasm of cervix (9) Encounter for screening examination for sexually transmitted disease: Code(s): Z11.3 - Encounter for screening for infections with a predominantly sexual mode of transmission (10) Prediabetes: Code(s): R73.03 - Prediabetes Plan This was a rescheduled 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 Patient is overdue for her Pap patient did not volunteer but I found in the system records of a hemoglobin of 6.8 in the av requiring referral to Hematology where she received at least 2 transfusions according to the patient patient states she did not return for the iron transfusions. Patient did not recall having a discussion about what could have caused her anemia patient has not seen her primary care provider in a while she has an appointment with Hematology on . I had a lengthy discussion with her about her heavy periods probably being partially responsible for her anemia unless something else can be found and that would be up to her other providers. Discussed the very common scenario of very heavy menses in the setting of extreme obesity and that they do require management especially if it gets to the point where she has become so anemic that she is required I transfusions. I strongly recommend that she consider a Mirena IU S however it would be challenging to place she is on day 3 of her menses now and her cervix is tightly closed in it is in fact difficult to feel her uterus because of the extreme adiposity she says that on day 4 it is often heavier and that may be a day to try however day for will be tomorrow and it is Friday so it will not be during this cycle. If she is interested in that she would need to call on the 1st day and plan for coming on day 4 of her menses which she says is her heaviest day so that we could try to place a Mirena. I also was discussing other control methods that are sometimes used but the challenge is being very clear about dosage availability in her body because of her increased body mass. Of note patient could not be weighed today at this visit because our scale does not allow for someone in her weight range. 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 She says though, that that provider will manage her her control pills and menses, and she will follow-up with them her blood pressure checked. I told her that if she was going to start her control pills this being day 3 of her menses was a perfect time to start them either today or tomorrow. I reviewed the importance taking the pill at the same time every day and following up with that provider about blood pressure as she has had previous high blood pressures and additionally if she had any signs of a blood clot or stroke. She then shared that she had seen a different doctor yesterday at [facility] and she was not exactly sure what they were called but it was something about getting medication to help her with PCOS like metformin. I asked her if it was somebody to help her with weight loss issues and she said they had tried to prescribe Wegovy but it was not covered in her insurance. I reviewed all of the blood test results that I had done for her that did not clearly show PCOS but the ultrasound did show signals of PCOS I discussed with her that it was a paramount importance that she work on losing weight and it was already showing negative effects on her health by virtue of the fasting blood sugar being in the prediabetic range. I reviewed the very serious issue that she had, had but had not shared about her severe anemia, and that that needed to be dealt with and unless there was some other reason to explain her anemia the most likely culprit was heavy periods, which she says were much heavier last fall with big clots. Discussed that this is a very important health issue to take care of and is in fact what we had been discussing at previous visit when she came in last January (though did not return for follow-up). Discussed that that is why I was recommending considering a Mirena, but if somebody else wants to manage her menorrhagia on control pills and they are helpful to her and do not raise her blood pressure or cause any other difficulties then that may be a very useful tool and she does not think about the Mirena then-just so long as she follow-up with that provider about her control pills she did not even know the name of them. I was glad to hear she was seeing some provider who was going to try to help her with weight loss via some other avenue but I urged her to do her best to work on it herself that that was of paramount importance I also though really urged her to have some consistency with where she is going, as currently now she has discussed having primary care via [facility], coming for secretary board of commissioners visits with myself, interspersed with getting management for her heavy menses via her work site with a provider in an urgent care setting, and seeing another provider at [facility] for possible weight loss or possible endocrine issues (patient was not exactly sure), and Hematology for anemia though she admits to not following up with anyone. I discussed importance of continuity of care and not to be bouncing around between providers. All of the suggestions that happen offered to her by her history are good ones but it is more helpful to be consistent with providers the most important thing that she could focus on right now is using a weight in helping manage her menses so that she does not end up in the emergency room requiring emergency D and C for dysfunctional bleeding. She has an appointment upcoming as well with Hematology. The patient also shared at the end that she is talking to somebody, and she wants to be responsible about checking for all different kinds of the STIs. She told me that a previous partner year ago had told her that he had HSV. And she wanted to get checked for things I told her that we do not do testing for herpes but I did not see anything on exam that was consistent with either herpes or HPV, and I explained that HPV is indirectly tested for by doing the Pap smear and looking for abnormal cells but not tested for specifically unless there has an abnormality or until she turns age 29. Discussed that I will place orders for testing for HIV hep B hep C and syphilis. She says she has never had any thing that she thought was herpes. If she wanted the what appeared to be a skin tag on her side to be checked out then she should ask her primary care provider or possibly assistant director of public works.. I shandra d her it did not appear to be a wart. (and it certainly did not appear to be herpetic.) Since she now has appointments for follow-up primary care possibly endocrinology at [facility] and is following up with her co-worker providers at her urgent care site about control and menorrhagia then we can simply see her in another year unless she has establish care with someone else. I wished her luck with weight loss and all of the issues we talked about today she is on the portal and can get the results of her lab work herself. We would send her a letter with Pap results. Orders: Orders Bacterial Vaginosis Panel Today Z11.3 - Encounter for screening for infections with a predominantly sexual mode of transmission Hepatitis B Surface Antigen Today E28.2 - Polycystic ovarian syndrome, E66.01 - Morbid (severe) obesity due to excess calories, Z01.419 - Encounter for gynecological examination (general) (routine) without abnormal findings, Z11.3 - Encounter for screening for infections with a predominantly sexual mode of transmission, Z12.4 - Encounter for screening for malignant neoplasm of cervix Syphilis Screen Today E28.2 - Polycystic ovarian syndrome, E66.01 - Morbid (severe) obesity due to excess calories, Z01.419 - Encounter for gynecological examination (general) (routine) without abnormal findings, Z11.3 - Encounter for screening for infections with a predominantly sexual mode of transmission, Z12.4 - Encounter for screening for malignant neoplasm of cervix CT NG by PCR Today Z11.3 - Encounter for screening for infections with a predominantly sexual mode of transmission Pap Smear Today Z12.4 - Encounter for screening for malignant neoplasm of cervix Hepatitis C Antibody Today E28.2 - Polycystic ovarian syndrome, E66.01 - Morbid (severe) obesity due to excess calories, Z01.419 - Encounter for gynecological examination (general) (routine) without abnormal findings, Z11.3 - Encounter for screening for infections with a predominantly sexual mode of transmission, Z12.4 - Encounter for screening for malignant neoplasm of cervix HIV Ab/Ag Today E28.2 - Polycystic ovarian syndrome, E66.01 - Morbid (severe) obesity due to excess calories, Z01.419 - Encounter for gynecological examination (general) (routine) without abnormal findings, Z11.3 - Encounter for screening for infections with a predominantly sexual mode of transmission, Z12.4 - Encounter for screening for malignant neoplasm of cervix Coding Level of Care Code Est Pt Level 4 (44438) Est Pt Prev Care 18-39y(31616) Diagnoses PCOS (polycystic ovarian syndrome) E28.2 Morbid obesity E66.01 Extreme obesity E66.8 Well woman exam with routine gynecological exam Z01.419 Iron deficiency anemia D50.9 Obesity, morbid, BMI 50 or higher E66.01 Cervical cancer screening Z12.4 Encounter for screening examination for sexually transmitted disease Z11.3 Prediabetes R73.03 Time Spent (min) 55 Comment Multiple healthcare issues dealt with at this visit please see the notes
== END 2023-10-24 15:41 | disposition home or self-care (01) ==
LOC: HO.HWSM 13:39
PROVIDERS: PCP Internal Medicine; Visit Provider Advanced Practice Midwife
DX: E28.2 Polycystic ovarian syndrome (principal); E66.01 Morbid (severe) obesity due to excess calories; E66.8 Other obesity; Z01.419 Encounter for gynecological examination (general) (routine) without abnormal findings; D50.9 Iron deficiency anemia, unspecified; R73.03 Prediabetes
CPT/HCPCS: 99214; 99395

== ENCOUNTER 2023-10-24 13:39 | Outpatient (REF) | payer OTHER, SELFPAY ==
[2023-10-25 02:39] LABS: CT PCR NOT DETECTED (Not Detect.); NG PCR NOT DETECTED (Not Detect.)
[2023-10-25 13:22] LABS: BV Int Neg Control Negative (Negative); BV Int Pos Control Positive (Positive)
== END 2023-10-24 13:40 | disposition home or self-care (01) ==
LOC: HO.LNP 13:39
PROVIDERS: PCP Internal Medicine; Visit Provider Advanced Practice Midwife
DX: Z12.4 Encounter for screening for malignant neoplasm of cervix (principal); Z11.3 Encounter for screening for infections with a predominantly sexual mode of transmission; E28.2 Polycystic ovarian syndrome; E66.01 Morbid (severe) obesity due to excess calories; D50.9 Iron deficiency anemia, unspecified; R73.03 Prediabetes
CPT/HCPCS: 0353U; 87480; 87510; 87660; 88142; 99212; 99395

== ENCOUNTER 2023-11-07 14:04 | Outpatient (REF) | payer OTHER, SELFPAY ==
[2023-11-08 04:16] LABS: Syphilis Screen Nonreactive (Nonreactive)
[2023-11-08 04:35] LABS: HBsAGNum1 0.34 S/CO (0.00-0.99); HIV AB/AG Nonreactive (Nonreactive); HIV Num 1 0.06 S/CO (0.00-0.99); Hepatitis B Surface Antigen Negative (Negative); ~Hepatitis C Antibody Nonreactive (Nonreactive)
== END 2023-11-07 14:05 | disposition home or self-care (01) ==
LOC: HO.LAB 14:04
PROVIDERS: PCP Internal Medicine; Visit Provider Advanced Practice Midwife
DX: Z01.419 Encounter for gynecological examination (general) (routine) without abnormal findings (principal); Z11.4 Encounter for screening for human immunodeficiency virus [HIV]; Z11.3 Encounter for screening for infections with a predominantly sexual mode of transmission; E66.01 Morbid (severe) obesity due to excess calories; E28.2 Polycystic ovarian syndrome
CPT/HCPCS: 36415; 86780; 86803; 87340; 87389

== ENCOUNTER 2023-11-26 09:52 | Outpatient (AMB) | payer OTHER, SELFPAY ==
--- NOTE | 2023-11-26 10:02 | A.OFFVIS_ITS ---
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 Allergies aloe Allergy (Intermediate, Verified 11/26/23 10:13) Hives guaifenesin [From ROBITUSSIN] Allergy (Intermediate, Verified 11/26/23 10:13) Rash benzonatate Adverse Reaction (Verified 11/26/23 10:13) Numbness Medication List - Last Reconciled 11/26/23 by Pia Mcconnell CNM No Known Home Meds Is last menstrual period known: Yes Last menstrual period: 10/20/23 Do you need a note to return to daycare/school/sports/work: No HPI HPI Repeat pap: Details: Patient is here for repeat Pap smear today her Pap smear that was done at of visit recently came back unsatisfactory her cervix was very difficult to visualize secondary to adipose. Patient has not followed up yet with any the other providers. She says she last saw Dr. Galvez in Hematology several months ago she tends not to go with she has not having a problem. 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 She says her primary is Dr. Munoz and I recommended that she have a conversation about all of her health concerns and that most likely her primary will be ordering her fasting blood work to check on all of her issues and to be ready and to go get all of the fasting blood work as soon as possible after the visit so that she can follow-up appropriately with her primary care provider. The patient says she is feeling fine so she does not think she is anemic now. Her complexion is pale. Discussed the possibility that if she were chronically anemic she might have become used to how it feels. Discussed that it is not healthy to skip periods on any prolonged in regular basis and it is all connected to PCOS and the obesity and the elevated hormonal milieu suppressing regular ovulation and therefore regular periods and that over time that can be a buildup of the lining of the uterus leading to hyperplasia and other challenges if she ever misses a period for more than 3 months she should seek out care wherever she has decided to be seen. She tells me she did not start the control pills given to her by her other providers that she was going to start when I last saw her during her period. Discussed that if this occurs often consideration might need to be given to placing a Mirena IU S if she does not want to start control pills or if she is hypertensive. She has not particularly working on the weight loss now she had seen along a Onur at [facility] but it was not really working so she did not follow-up. She is sexually active but she is using condoms and she does not wish be . Careful condom use reviewed since she does not wish to start control at this time [facility] Medical History Hepatitis B immune Anxiety Depression Morbid obesity Extreme obesity Gall stone Insomnia Back pain History of PCOS History of anxiety Surgical History History of surgery Hx of cholecystectomy Family History Maternal Grandmother Diabetes Ovarian cancer Mother Migraine Father No problems noted. Sister No problems noted. Maternal Uncle Diabetes Family/Other Breast cancer Other Mental health disorder Social History Household Members: None Housing: Apartment Alcohol intake: current Alcohol intake frequency: holidays/special occasions only Patient Tobacco Use Status: Never used Tobacco Second Hand Smoke Exposure: No service: No Current occupational status: employed and unemployed Sexual orientation: Straight/Heterosexual Gender identity: Female Cognitive needs: No Hearing needs: No Vision needs: Yes Female Reproductive History Menstrual Age of Menarche: 12 Duration of menses: 3-5 days Date of last menstrual period: 10/20/23 control method: none Date of last pap smear: 10/28/23 (unsatisfactory) History of abnormal pap smear: No Physical Exam Vital Signs: Last Vital Signs BP 110/68 11/26/23 10:11 BMI result Body Mass Index 52.9 Other: Today her cervix was much more able to be visualized and was pink smooth healthy nulliparous with scant clear discharge exam facilitated by use of large but not extra long speculum and also patient placing her fists underneath her buttocks to help spread. Patient was concerned about an in visible bump underneath her mons pubis that was consistent with a tiny area folliculitis but that was not inflamed. External Female Exam: normal external appearance and normal appearance of the urethra Speculum Exam - Vagina: normal appearance of the vagina and normal vaginal dis charge Speculum Exam - Cervix: normal appearance of the cervix and Cervical os closed Assessment & Plan Assessment & Plan (1) Prediabetes: Code(s): R73.03 - Prediabetes Category: Medical (2) Cervical cancer screening: Comment: 10/24/2023 Pap is unsatisfactory. (it was a extremely challenging exam to visualize her cervix), Code(s): Z12.4 - Encounter for screening for malignant neoplasm of cervix Category: Medical (3) PCOS (polycystic ovarian syndrome): Code(s): E28.2 - Polycystic ovarian syndrome Category: Medical (4) Iron deficiency anemia: Code(s): D50.9 - Iron deficiency anemia, unspecified Category: Medical (5) Irregular menses: Code(s): N92.6 - Irregular menstruation, unspecified Category: Medical (6) Obesity, morbid, BMI 50 or higher: Code(s): E66.01 - Morbid (severe) obesity due to excess calories Category: Medical Plan Patient is here for repeat Pap smear today her Pap smear that was done at of visit recently came back unsatisfactory her cervix was very difficult to visualize secondary to adipose. Patient has not followed up yet with any the other providers. She says she last saw Dr. Galvez in Hematology several months ago she tends not to go with she has not having a problem. 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 She says her primary is Dr. Munoz and I recommended that she have a conversation about all of her health concerns and that most likely her primary will be ordering her fasting blood work to check on all of her issues and to be ready and to go get all of the fasting blood work as soon as possible after the visit so that she can follow-up appropriately with her primary care provider. The patient says she is feeling fine so she does not think she is anemic now. Her complexion is pale. Discussed the possibility that if she were chronically anemic she might have become used to how it feels. Discussed that it is not healthy to skip periods on any prolonged in regular basis and it is all connected to PCOS and the obesity and the elevated hormonal milieu suppressing regular ovulation and therefore regular periods and that over time that can be a buildup of the lining of the uterus leading to hyperplasia and other challenges if she ever misses a period for more than 3 months she should seek out care wherever she has decided to be seen. She tells me she did not start the control pills given to her by her other providers that she was going to start when I last saw her during her period. Discussed that if this occurs often consideration might need to be given to placing a Mirena IU S if she does not want to start control pills or if she is hypertensive. She has not particularly working on the weight loss now she had seen along a Onur at [facility] but it was not really working so she did not follow-up. She is sexually active but she is using condoms and she does not wish be . Careful condom use reviewed since she does not wish to start control at this time Orders: Orders Pap Smear Today Z01.419 - Encounter for gynecological examination (general) (routine) without abnormal findings Coding Level of Care Code Est Pt Level 3 (51748) Diagnoses Prediabetes R73.03 Cervical cancer screening Z12.4 PCOS (polycystic ovarian syndrome) E28.2 Iron deficiency anemia D50.9 Irregular menses N92.6 Obesity, morbid, BMI 50 or higher E66.01
[2023-11-26 10:11] VITALS: BP 110/68; BMI 52.9
== END 2023-11-26 11:10 | disposition home or self-care (01) ==
PROVIDERS: PCP Internal Medicine; Visit Provider Advanced Practice Midwife
DX: R73.03 Prediabetes (principal); Z12.4 Encounter for screening for malignant neoplasm of cervix; E28.2 Polycystic ovarian syndrome; D50.9 Iron deficiency anemia, unspecified; N92.6 Irregular menstruation, unspecified; E66.01 Morbid (severe) obesity due to excess calories
CPT/HCPCS: 99213

== ENCOUNTER 2023-11-26 09:52 | Outpatient (REF) | payer OTHER, SELFPAY | END 2023-11-26 09:53 | disposition home or self-care (01) | LOC: HO.LAB 09:52 | PROVIDERS: PCP Internal Medicine; Visit Provider Advanced Practice Midwife | DX: Z01.419 Encounter for gynecological examination (general) (routine) without abnormal findings (principal); R87.615 Unsatisfactory cytologic smear of cervix; R73.03 Prediabetes; E28.2 Polycystic ovarian syndrome; D50.9 Iron deficiency anemia, unspecified; N92.6 Irregular menstruation, unspecified; E66.01 Morbid (severe) obesity due to excess calories | CPT/HCPCS: 88142; 99212 ==

== ENCOUNTER 2023-12-01 15:38 | Outpatient (AMB) | payer OTHER, SELFPAY ==
[2023-12-01 15:41] VITALS: BP 112/76; BMI 50.0
--- NOTE | 2023-12-01 15:41 | MHC.PC.OV ---
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 Accompanied by: Self / Same As Patient Allergies aloe Allergy (Intermediate, Verified 12/01/23 15:54) Hives guaifenesin [From ROBITUSSIN] Allergy (Intermediate, Verified 12/01/23 15:54) Rash benzonatate Adverse Reaction (Verified 12/01/23 15:54) Numbness Medication List - Last Reconciled 12/01/23 by Bonny Chadwick MD No Known Home Meds Tobacco use date assessed: 12/01/23 Dental Screening Dental Screen Date: 12/01/23 Did you have a dental visit in the last 12 months?: No Did you have a dental problem in the last 6 months where you did not have access to dental care?: No Was dental information given to patient?: Patient has dentist HPI HPI Comments History of Present Illness Details This is a 28-year-old female with mild recurrent major depression in remission and morbid obesity with BMI of 50 that comes for her physical exam. Denies any chest pain or shortness of breath. Complains of insomnia. Will start wegovy weight and side effects were discussed. Pap smear was this month and results are pending. [facility] Medical History Hepatitis B immune Anxiety Depression Morbid obesity Extreme obesity Gall stone Insomnia Back pain History of PCOS History of anxiety Surgical History History of surgery Hx of cholecystectomy Family History (Updated 12/01/23 @ 15:57 by Bonny Chadwick MD) Maternal Grandmother Diabetes mellitus Ovarian cancer Mother Migraine Father Diabetes mellitus Sister No problems noted. Maternal Uncle Diabetes mellitus Family/Other Breast cancer Other Mental health disorder Social History Household Members: None Housing: Apartment Alcohol intake: current Alcohol intake frequency: holidays/special occasions only Patient Tobacco Use Status: Never used Tobacco e-Cigarette/Vaping Use: Never Used Second Hand Smoke Exposure: No service: No Current occupational status: employed Current occupational exposures/hazards: No Sexual orientation: Straight/Heterosexual Gender identity: Female Cognitive needs: No Hearing needs: No Vision needs: Yes Female Reproductive History Menstrual Age of Menarche: 12 Questionnaire PHQ-9 Over the last 2 weeks, how often have you been bothered by any of the following problems? 1. Little interest or pleasure in doing things: not at all 2. Feeling down, depressed, or hopeless: not at all 3. Trouble falling or staying asleep, or sleeping too much: not at all 4. Feeling tired or having little energy: not at all 5. Poor appetite or overeating: not at all 6. Feeling bad about yourself - or that you are a failure or have let yourself or your family down: not at all 7. Trouble concentrating on things, such as reading the newspaper or watching television: not at all 8. Moving or speaking so slowly that other people could have noticed. Or the opposite - being so fidgety or restless that you have been moving around a lot more than usual: not at all 9. Thoughts that you would be better off or of hurting yourself in some way: not at all Total score: 0 Depression Screening Interpretation: Negative Depression Screening Done: Yes 95271 - PHQ-9 Billing: Yes Source: Developed by Drs. Bradley oLpez, Judith Sneed, Mikal Ahuja and colleagues, with an educational henrik from [employer]. Thrive Questionnaire Date Thrive assessed: 12/01/23 I am a: Patient What is your living situation today?: I have a steady place to live Within the past 12 months, did the food you bought not last and you didn't have the money to get more?: Never true Within the past 12 months, did you worry whether your food would run out before you got money to buy more?: Never true Do you have trouble paying for medicines?: No Do you have trouble getting transportation to medical appointments?: No Do you have trouble paying your heating and electricity bill?: No Do you have trouble taking care of your child, family member or friend?: No Do you have trouble with day-to-day activities such as bathing, preparing meals, shopping, managing finances, etc.?: No Are you currently unemployed and looking for a job?: No Are you interested in more education?: No Please select the resources that you would like help with: None Currently or been in a relationship where the following occur: no concerns reported THRIVE Score: 0 AUDIT C Alcohol Use Questionnaire (AUDIT-C) 1. How often do you have a drink containing alcohol?: Monthly or less 2. How many drinks containing alcohol do you have on a typical day when you are drinking?: 1 or 2 3. How often do you have six or more drinks on one occasion?: Never Total Score: 1 Score Reviewed/Action Taken: No NIELS-7 AMB Questionnaire NIELS-7 Date NIELS - 7 assessed: 12/01/23 Feeling nervous, anxious, or on edge: 3 = Nearly every day Not being able to stop or control worryin = Not at all Worrying too much about different things: 3 = Nearly every day Trouble relaxin = More than half the days Being so restless that it is hard to sit still: 0 = Not at all Becoming easily annoyed or irritable: 2 = More than half the days Feeling afraid as if something awful might happen: 0 = Not at all Total NIELS-7 score (0-4 normal; 5-9 mild; 10-14 moderate; 15-21 severe): 10 Source: Developed by Drs. Bradley Lopez, Judith Sneed, Mikal Ahuja and colleagues, with an educational henrik from [employer]. NIELS-7 Assessment Billing NIELS-7 Assessment Tool: NIELS-7 Assessment 30332 Review of Systems Const All systems reviewed & are unremarkable except as noted in HPI and below Eyes Reports no additional complaints, Denies change in vision and Denies other visual disturbances Card Denies chest pain at rest, Denies chest pain with activity, Denies edema, Denies irregular heart rhythm, Denies claudication, Denies dyspnea, Denies dyspnea on exertion, Denies orthopnea, Denies paroxysmal nocturnal dyspnea and Denies slow heart rate Resp Denies cough, Denies dyspnea and Denies dyspnea on exertion GI Denies abdominal pain, Denies change in bowel habits, Denies excessive flatus, Denies nausea and Denies vomiting Denies urinary incontinence, Denies urinary hesitancy and Denies urinary urgency Musc Denies atrophy, Denies deformity and Denies limited range of motion Physical exam (Primary Care) Vital Signs: Last Vital Signs BP 112/76 12/01/23 15:41 BMI result Body Mass Index 50.0 Tobacco/Smoking Status: Tobacco use Status Tobacco use date assessed 12/01/23 12/01/23 15:48 Patient Tobacco Use Status Never used Tobacco 12/01/23 15:48 e-Cigarette/Vaping Use Never Used 12/01/23 15:48 PHQ-9: PHQ-9 Score PHQ-9: Total score 0 12/01/23 15:48 Depression Screening Interpretation: Negative Thrive Assessment: Date of Thrive Assessment Date Thrive assessed 12/01/23 12/01/23 15:48 Currently or been in a relationship where the following occur: no concerns reported Const Orientation/consciousness: patient oriented x3 HENMT Head: Yes normal to inspection, Yes normocephalic and Yes atraumatic Ears: external ears normal Eyes General: appearance normal, both eyes and all related structures Eyelids: Yes eyelids normal Conjunctivae: conjunctivae normal Neck Neck: Yes normal visual inspection and Yes supple Resp Effort & Inspection: normal respiratory effort Auscultation: clear to auscultation bilaterally Cardio Jugular venous distension: no JVD Rate: regular rate Rhythm: regular rhythm Heart sounds: S1 normal heart sound present and S2 normal heart sound present GI Inspection: Yes normal to inspection Palpation (GI): Soft to palpation and nontender Auscultation: normal bowel sounds Skin General skin exam: no rashes or lesions noted Neuro General: patient oriented x3 and no focal motor deficits Extrem General: Yes full ROM Psych Appearance: grossly normal Assessment and Plan Assessment & Plan (1) Physical exam, pre-employment: Code(s): Z02.1 - Encounter for pre-employment examination Plan: Repeat in a year. (2) Mild recurrent major depression: Code(s): F33.0 - Major depressive disorder, recurrent, mild Plan: In remission. (3) Obesity, morbid, BMI 50 or higher: Code(s): E66.01 - Morbid (severe) obesity due to excess calories Plan: Declines weight loss surgery. Start Wegovy. BMI goal is less than 30. Orders: Orders Complete Blood Count Auto Diff Today D64.9 - Anemia, unspecified IRON PROFILE Today D64.9 - Anemia, unspecified Vitamin B12 and Folate Today E53.8 - Deficiency of other specified B group vitamins Vitamin D 25-OH Total Today E55.9 - Vitamin D deficiency, unspecified Comprehensive [place]. Panel Fast Today E66.01 - Morbid (severe) obesity due to excess calories Thyroid Stimulating Hormone Today E66.01 - Morbid (severe) obesity due to excess calories Lipid Panel Today E66.01 - Morbid (severe) obesity due to excess calories Medications: New semaglutide (weight loss) (Vinh) administer weeks 1 through 4 of therapy 0.25 mg (0.5 mL) subcut QWEEK 4 weeks 2 mL 0RF trazodone 50 mg PO BEDTIME 90 days PRN 90 tabs 0RF sleep Coding Level of Care Code Est Pt Prev Care 18-39y([id number]) Diagnoses Physical exam, pre-employment Z02.1 Mild recurrent major depression F33.0 Obesity, morbid, BMI 50 or higher E66.01 Additional Codes NIELS-7 Assessment Billing - NIELS-7 Assessment Tool: NIELS-7 Assessment 69853 ([id number]) Time Spent (min) 32
== END 2023-12-01 16:05 | disposition home or self-care (01) ==
PROVIDERS: PCP Internal Medicine; Visit Provider Internal Medicine
DX: Z00.00 Encounter for general adult medical examination without abnormal findings (principal); F33.0 Major depressive disorder, recurrent, mild; E66.01 Morbid (severe) obesity due to excess calories; Z68.43 Body mass index [BMI] 50.0-59.9, adult
CPT/HCPCS: 99395

== ENCOUNTER 2023-12-01 16:09 | Outpatient (REF) | payer OTHER, SELFPAY ==
[2023-12-01 16:38] LABS: MANUAL DIFF FLAG NO
[2023-12-01 17:07] LABS: Basophils Absolute Auto 0.1 X10*3/uL (0.0-0.2); Basophils Percent Auto 0.5 % (0-2); Eosinophils Absolute Auto 0.1 X10*3/uL (0.0-0.4); Hematocrit 34.7 % (37.0-47.0); Imm Gran Abs Auto 0.05 X10*3/uL (0.00-0.03); Imm Gran Pct Auto 0.4 % (0.0-0.4); Lymphocytes Absolute Auto 2.3 X10*3/uL (1.2-4.9); Lymphocytes Percent Auto 18.9 % (20-40); Mean Corpuscular HGB Conc 28.8 g/dl (31.0-35.0); Mean Corpuscular Hemoglobin 19.6 pg (27.0-33.0); Mean Corpuscular Volume 68.2 fL (80.0-98.0); Mean Platelet Volume 9.8 fL (9.4-12.3); Monocytes Absolute Auto 0.6 X10*3/uL (0.1-1.2); Monocytes Percent Auto 4.6 % (2-11); Neutrophils Absolute Auto 9.1 x10*3/uL (2.0-8.3); Neutrophils Percent Auto 74.6 % (45-73); Platelet Count 455 X10*3/uL (160-400); Red Blood Count 5.09 X10*6/uL (4.20-5.50); Red Cell Distribution Width 20.6 % (11.0-16.0); White Blood Count 12.1 X10*3/uL (4.8-10.8)
[2023-12-01 17:52] LABS: Alanine Aminotransferase 13 U/L (0-31); Albumin Level 4.1 g/dL (3.5-5.0); Alkaline Phosphatase 105 U/L (39-117); Anion Gap 14 (12-20); Aspartate Amino Transferase 12 U/L (5-31); Bilirubin Total 0.3 mg/dL (0.0-1.0); Blood Urea Nitrogen 10 mg/dL (9-16); Calcium 9.3 mg/dL (8.4-10.2); Carbon Dioxide 23 mmol/L (22-29); Chloride 109 mmol/L (96-108); Cholesterol 128 mg/dL (<200); Estimated Glomerular Filt Rate > 60; Glucose Fasting 98 mg/dL (60-99); HDL Cholesterol 45 mg/dL (>40); Iron 13 mcg/dL (30-160); LDL Cholesterol Calculated 75 mg/dL (<100); Percent Iron Saturation 4 % (15-50); Potassium 4.2 mmol/L (3.3-5.1); Sodium 142 mmol/L (135-145); Total Iron Binding Capacity 313 mcg/dL (228-428); Total Protein 7.5 g/dL (6.5-8.0); Triglycerides 41 mg/dL (<150); Unsaturated Iron Binding 300 ug/dL
[2023-12-01 18:07] LABS: Thyroid Stimulating Hormone 0.92 uIU/mL (0.32-4.0); Vitamin D 25-OH Total 12.5 ng/mL (>30)
[2023-12-01 18:15] LABS: Folate 4.4 ng/mL (> or = 4.0); Vitamin B12 266 pg/mL (200-900)
== END 2023-12-01 16:10 | disposition home or self-care (01) ==
LOC: HO.LAB 16:09
PROVIDERS: PCP Internal Medicine; Visit Provider Internal Medicine
DX: E55.9 Vitamin D deficiency, unspecified (principal); E53.8 Deficiency of other specified B group vitamins; E66.01 Morbid (severe) obesity due to excess calories; D64.9 Anemia, unspecified
CPT/HCPCS: 36415; 80053; 80061; 82306; 82607; 82746; 83540; 84443; 85025

== ENCOUNTER 2024-03-20 12:50 | Emergency (ER) | payer OTHER, SELFPAY ==
--- NOTE | ~2024-03-20 | CT_ITS ---
EXAMINATION CT HEAD WITHOUT CONTRAST CLINICAL INFORMATION: Right-sided headache COMPARISON: None TECHNIQUE: CT of the head was performed without intravenous contrast. Reformatted axial, coronal, and sagittal images were reviewed. This CT examination was performed using dose optimization techniques as appropriate, variously including the following: *Automated exposure control *Adjustment of mA and/or kV according to patient size (this includes techniques or standardized protocols for targeted exams where dose is matched to indication/reason for exam; i.e. extremities or head) *Use of iterative reconstruction technique DLP: 653 mGy-cm FINDINGS: No intracranial hemorrhage, extra-axial fluid collection, or midline shift is identified. Espinoza-white matter differentiation is preserved. The ventricles are within normal limits. Basal cisterns are within normal limits. Paranasal sinuses are clear. Mastoid air cells and middle ear cavities are clear. No acute calvarial fractures. CT/CT head/brain wo IV con IMPRESSION: No acute intracranial abnormality. Electronically signed by: Russel Malin DO 03/20/2024 10:25 PM EDT
[2024-03-20 13:22] VITALS: BP 142/73; PULSE 93; RESP 16; TEMP 37; O2SAT 100; BMI 51.4
--- NOTE | 2024-03-20 13:22 | ED_ITS ---
HPI - General Adult General Chief complaint: Dizziness Stated complaint: Dizziness/Nausea/Headache Time Seen by Provider: 03/20/24 19:53 Source: patient, RN notes reviewed and old records reviewed Mode of arrival: ambulatory Limitations: no limitations History of Present Illness ED Provider: Nishant GUILLORY narrative: 28-year-old female presents for evaluation of multiple complaints. Patient reports a history of iron-deficiency anemia. She feels weak and fatigued and is wondering if she has anemia today. She does state that she has not had a normal period for the last 2 months. She took multiple tests reports that 1 of them was positive but the rest were all negative. She reports left-sided flank pain She endorses urinary frequency but denies dysuria Denies any fevers or chills She also endorses a right-sided headache that is on and off over the last 2 months. Currently her headache is a 4/10 Denies any lightheadedness, visual changes She has occasional nausea without vomiting Related Data Previous Rx's ?Medication ?Instructions ?Recorded cholecalciferol (vitamin D3) 50 50 mcg PO DAILY 90 days #90 caps 12/01/23 mcg (2,000 unit) capsule ferrous sulfate 325 mg (65 mg 325 mg PO DAILY 90 days #90 tabs 12/01/23 iron) tablet,delayed release trazodone 50 mg tablet 50 mg PO BEDTIME PRN sleep 90 days 12/01/23 #90 tabs semaglutide (weight loss) 0.5 0.5 mg (0.5 mL) subcut QWEEK 4 01/17/24 mg/0.5 mL subcutaneous pen weeks #2 mL injector (Wegovy) nitrofurantoin 100 mg PO Q12H 5 days #10 caps 03/20/24 monohydrate/macrocrystals 100 mg capsule (Macrobid) Allergies Allergy/AdvReac Type Severity Reaction Status Date / Time aloe Allergy Intermediate Hives Verified 03/20/24 13:24 guaifenesin [From ROBITUSSIN] Allergy Intermediate Rash Verified 03/20/24 13:24 benzonatate AdvReac Numbness Verified 03/20/24 13:24 Review of Systems 2 Constitutional: Constitutional: Denies body ache(s), Denies chills, Denies frequent falls and Reports headache(s) Eyes: Eyes: Denies blurry vision ENT: Denies vertigo and Reports headache(s) Cardiovascular: Cardiovascular: Denies chest pain Respiratory: Respiratory: Denies cough Gastrointestinal: Gastrointestinal: Denies abdominal pain, Reports nausea and Denies vomiting Genitourinary: Genitourinary: Denies dysuria Comments: Reports urinary frequency Musculoskeletal: Musculoskeletal: Reports back pain Integumentary/Breasts: Skin/Breast: Denies rash Neurologic: Denies vertigo, Denies frequent falls and Reports headache(s) FORMERLY [facility] Past Medical History Medical History Hepatitis B immune Anxiety Depression Morbid obesity Extreme obesity Gall stone Insomnia Back pain History of PCOS History of anxiety Surgical History History of surgery Hx of cholecystectomy Family History Family History (Updated 12/01/23 @ 15:57 by Bonny Chadwick MD) Maternal Grandmother Diabetes mellitus Ovarian cancer Mother Migraine Father Diabetes mellitus Sister No problems noted. Maternal Uncle Diabetes mellitus Family/Other Breast cancer Other Mental health disorder Social History Social History Household Members: None Housing: Apartment Alcohol intake: current Alcohol intake frequency: holidays/special occasions only Patient Tobacco Use Status: Never used Tobacco Smoked in Last 30 Days: No e-Cigarette/Vaping Use: Never Used Second Hand Smoke Exposure: No Use of substances other than those prescribed or required for medical reasons: No Advance Directives: No Advance Directives Information Provided: No service: No Current occupational status: employed Current occupational exposures/hazards: No Sexual orientation: Straight/Heterosexual Gender identity: Female Cognitive needs: No Hearing needs: No Vision needs: Yes Physical Exam ED Vital Signs: Vital Signs - 24 hr 03/20/24 13:22 03/20/24 16:47 03/20/24 18:00 Temperature 98.6 F 98.8 F Pulse Rate 93 90 89 Respiratory Rate 16 18 16 Blood Pressure 142/73 H 122/54 L 127/61 Pulse Oximetry 100 100 99 Oxygen Delivery Method Room Air Room Air Room Air 03/20/24 21:55 03/20/24 23:01 Temperature 98.7 F 98.7 F Pulse Rate 96 96 Respiratory Rate 18 18 Blood Pressure 111/58 L 111/58 L Pulse Oximetry 100 100 Oxygen Delivery Method Room Air Room Air BMI result Body Mass Index 51.4 Const General: healthy appearing, comfortable, no acute distress, alert and awake Nutritional Appearance: well nourished Orientation/consciousness: patient oriented x3 HENMT Head: Yes normocephalic and Yes atraumatic Throat: Yes posterior oropharynx normal Eyes Eyelids: Yes eyelids normal Conjunctivae: conjunctivae normal Sclerae: sclerae normal Corneas: corneas normal Pupils: Equal, round and reactive pupils present EOM: EOMs intact bilaterally Neck Neck: Yes full ROM Resp Effort & Inspection: normal respiratory effort, able to speak in complete sentences and not labored GI Inspection: No distended Palpation (GI): Soft to palpation, not firm, nontender, no guarding and not rigid Skin General skin exam: elasticity normal Neuro General: patient oriented x3 Cranial nerves: Yes CN's II-XII intact bilaterally, Yes Equal, round and reactive pupils present and Yes Bilaterally intact EOM present Cognition (Neuro): normal cognition Extrem Other: Moving all extremities well without any obvious deformities Course Course Course Narrative: RME performed by Pita Garcia PA-C. Patient is a 28 year old assigned female at presenting to the emergency department with concern of and dizziness. Patient states she had 2 positive tests, then after 2 weeks, 2 negative tests. Patient denies any vaginal bleeding and states that she has not had her period since January. Detailed physical exam and review of systems are deferred to the concession supervisor. Labs ordered. Patient placed back in the waiting room pending room availability and results. Medications Administered Discontinued Medications Generic Name Dose Route Start Last Admin Trade Name Li PRN Reason Stop Dose Admin Acetaminophen/Butalbital/Caffeine 1 tab 03/20/24 20:47 03/20/24 21:01 Butalb/Acetamin/Caff 50/325/40 Tablet PO 03/20/24 20:48 1 tab ONCE ONE Administration Ondansetron HCl 4 mg 03/20/24 19:41 03/20/24 19:44 Ondansetron Odt 4 Mg Tab.Rapdis TRANSLINGU 03/20/24 19:42 4 mg ONCE ONE Administration Medical Decision Making Medical Decision Making MDM Narrative: 28-year-old female presents for evaluation of multiple complaints including headache x2 months. Her labs are significant for a leukocytosis of 15.3. The patient states that she has a chronic leukocytosis. She does have iron- deficiency anemia. Her hemoglobin today of 10.6 hematocrit 36.8 is the highest it has been in the last 3 years. Her chemistries are without any abnormalities. The patient is not . The patient has no neuro deficits. Given the lack of history of headaches but she has had a headache for last 2 months, I offered a CT scan of the brain and the patient would like to have this done. This was ordered. Patient's urinalysis shows small esterase with 6-10 white cells, no evidence of contamination. The patient does have some symptoms of UTI and this will be treated Differential Diagnosis Differential Diagnoses: The differential diagnosis associated with the presentation includes Acute headache Intracranial mass Intracranial tumor UTI Flank pain Obstructive uropathy Lab Data MDM Lab Attestation statement: I reviewed the patient's lab results. 03/20/24 14:06 03/20/24 14:06 Labs: Lab Results 03/20/24 Range/Units 14:06 WBC 15.3 H (4.8-10.8) X10*3/uL RBC 5.26 (4.20-5.50) X10*6/uL Hgb 10.6 L (12.0-16.0) g/dl Hct 36.8 L (37.0-47.0) % MCV 70.0 L (80.0-98.0) fL MCH 20.2 L (27.0-33.0) pg MCHC 28.8 L (31.0-35.0) g/dl RDW 20.2 H (11.0-16.0) % Plt Count 418 H (160-400) X10*3/uL MPV 9.3 L (9.4-12.3) fL Immature Gran % (Auto) 0.4 (0.0-0.4) % Neut % (Auto) 79.2 H (45-73) % Lymph % (Auto) 15.5 L (20-40) % [place] % (Auto) 3.9 (2-11) % Eos % (Auto) 0.7 (0-4) % Baso % (Auto) 0.3 (0-2) % Lymph # (Auto) 2.4 (1.2-4.9) X10*3/uL [place] # (Auto) 0.6 (0.1-1.2) X10*3/uL Eos # (Auto) 0.1 (0.0-0.4) X10*3/uL Baso # (Auto) 0.0 (0.0-0.2) X10*3/uL Abs Immat Gran (auto) 0.06 H (0.00-0.03) X10*3/uL Absolute Neuts (auto) 12.1 H (2.0-8.3) x10*3/uL Absolute Nucleated RBC 0.000 (0.0-0.012) X10*3/uL Nucleated RBC % (auto) 0.0 (0.0-0.2) /100WBC Sodium 137 (135-145) mmol/L Potassium 4.1 (3.3-5.1) mmol/L Chloride 105 (96-108) mmol/L Carbon Dioxide 22 (22-29) mmol/L Anion Gap 14 (12-20) BUN 11 (9-16) mg/dL Creatinine 0.80 (0.5-1.4) mg/dL Estim Creat Clear Calc 152.8 Estimated GFR > 60 Random Glucose 87 (60-115) mg/dL Calcium 9.3 (8.4-10.2) mg/dL Magnesium 2.0 (1.6-2.6) mg/dL Total Bilirubin 0.3 (0.0-1.0) mg/dL AST 13 (5-31) U/L ALT 10 (0-31) U/L Alkaline Phosphatase 115 (39-117) U/L Total Protein 7.9 (6.5-8.0) g/dL Albumin 4.1 (3.5-5.0) g/dL Beta HCG, Quant < 2 mIU/mL Urine Color Yellow Urine Appearance Clear Urine pH 5.5 (5.0-9.0) Ur Specific [place] 1.020 (1.005-1.025) Urine Protein Negative (Neg-Trace) mg/dL Urine Glucose (UA) Negative (Negative) mg/dL Urine Ketones Negative (Negative) mg/dL Urine Blood Negative (Negative) Urine Nitrite Negative (Negative) Ur Leukocyte Esterase Small (1+) H (Negative) Urine RBC 0-2 (0-2) /HPF Urine WBC 6-10 H (0-5) /HPF Ur Squamous Epith Cells 0-2 (0-2) /HPF Urine Bacteria None Seen (None Seen) Hyaline Casts 0-2 (0-2) /LPF Independent Interpretation I performed an independent interpretation of an: CT Scan Interpretation: Agree with radiology sign language interpreter Radiology Impression Discussion of test interpretation with radiology: I have reviewed the radiologist's reading. Radiologist Impression: FINDINGS: No intracranial hemorrhage, extra-axial fluid collection, or midline shift is identified. Espinoza-white matter differentiation is preserved. The ventricles are within normal limits. Basal cisterns are within normal limits. Paranasal sinuses are clear. Mastoid air cells and middle ear cavities are clear. No acute calvarial fractures. CT/CT head/brain wo IV con IMPRESSION: No acute intracranial abnormality. Discharge Plan Discharge Clinical Impression: Acute headache, UTI (urinary tract infection) Patient Disposition: Home, Self-Care Instructions: Urinary Tract Infection in Women (ED), Acute Headache (ED) Additional Instructions: Take the antibiotic for your UTI twice daily for the next [address] scan did not show any significant abnormalities You may use ibuprofen/Tylenol for any further pain or headaches Follow-up with your primary doctor Prescriptions: New nitrofurantoin monohyd/m-cryst [Macrobid] 100 mg capsule 100 mg PO Q12H 5 Days Qty: 10 0RF Rx Instructions: must administer with a meal/food No Action cholecalciferol (vitamin D3) 50 mcg (2,000 unit) capsule 50 mcg PO DAILY 90 Days Qty: 90 1RF ferrous sulfate 325 mg (65 mg iron) tablet,delayed release (DR/EC) 325 mg PO DAILY 90 Days Qty: 90 2RF Wegovy 0.5 mg/0.5 mL pen injector 0.5 mg subcut QWEEK 28 Days Qty: 2 0RF Rx Instructions: administer weeks 5 through 8 of therapy trazodone 50 mg tablet 50 mg PO BEDTIME PRN (Reason: sleep) 90 Days Qty: 90 0RF Stand Alone Forms: Work/School Release Interventions: ED Discharge Assessment Last Done: 03/20/24 23:01 Discharge Date/Time: 03/20/24 23:02 Print Language: Romansh
[2024-03-20 14:09] LABS: MANUAL DIFF FLAG NO
[2024-03-20 14:12] LABS: Appearance Urine Clear; Color Urine Yellow; Glucose Urine UA Negative (Negative); Leukocyte Esterase Urine Small (1+) (Negative); Nitrite Urine Negative (Negative); PH 5.5 (5.0-9.0); UMIC TRIGGER UACC YES; Urine Blood Negative (Negative); Urine Ketones Negative (Negative); Urine Protein Negative (Neg-Trace)
[2024-03-20 14:26] LABS: Basophils Percent Auto 0.3 % (0-2); Eosinophils Absolute Auto 0.1 X10*3/uL (0.0-0.4); Eosinophils Percent Auto 0.7 % (0-4); Hematocrit 36.8 % (37.0-47.0); Hemoglobin 10.6 g/dl (12.0-16.0); Imm Gran Abs Auto 0.06 X10*3/uL (0.00-0.03); Imm Gran Pct Auto 0.4 % (0.0-0.4); Lymphocytes Absolute Auto 2.4 X10*3/uL (1.2-4.9); Lymphocytes Percent Auto 15.5 % (20-40); Mean Corpuscular HGB Conc 28.8 g/dl (31.0-35.0); Mean Corpuscular Hemoglobin 20.2 pg (27.0-33.0); Mean Platelet Volume 9.3 fL (9.4-12.3); Monocytes Absolute Auto 0.6 X10*3/uL (0.1-1.2); Monocytes Percent Auto 3.9 % (2-11); Neutrophils Absolute Auto 12.1 x10*3/uL (2.0-8.3); Neutrophils Percent Auto 79.2 % (45-73); Platelet Count 418 X10*3/uL (160-400); Red Blood Count 5.26 X10*6/uL (4.20-5.50); Red Cell Distribution Width 20.2 % (11.0-16.0); White Blood Count 15.3 X10*3/uL (4.8-10.8)
[2024-03-20 14:27] LABS: Bacteria Urine None Seen (None Seen); Hyaline Casts Urine 0-2 /LPF (0-2); RBC Urine 0-2 /HPF (0-2); Squamous Epithelial Cell Urine 0-2 /HPF (0-2); UACC Culture Trigger YES
[2024-03-20 14:32] LABS: Alanine Aminotransferase 10 U/L (0-31); Albumin Level 4.1 g/dL (3.5-5.0); Alkaline Phosphatase 115 U/L (39-117); Anion Gap 14 (12-20); Aspartate Amino Transferase 13 U/L (5-31); Bilirubin Total 0.3 mg/dL (0.0-1.0); Blood Urea Nitrogen 11 mg/dL (9-16); Calcium 9.3 mg/dL (8.4-10.2); Carbon Dioxide 22 mmol/L (22-29); Chloride 105 mmol/L (96-108); Creatinine Clr Calc Pharmacy 152.8; Estimated Glomerular Filt Rate > 60; Glucose Random 87 mg/dL (60-115); Potassium 4.1 mmol/L (3.3-5.1); Sodium 137 mmol/L (135-145); Total Protein 7.9 g/dL (6.5-8.0)
[2024-03-20 14:36] LABS: HCG Quantitative < 2 mIU/mL
[2024-03-20 16:47] VITALS: BP 122/54; PULSE 90; RESP 18; TEMP 37.1; O2SAT 100
[2024-03-20 18:00] VITALS: BP 127/61; PULSE 89; RESP 16; O2SAT 99
[2024-03-20] MEDS: Ondansetron ODT 4 MG TAB.RAPDIS TRANSLINGU (19:44)
[2024-03-20] MEDS: Butalb/Acetamin/Caff 50/325/40 TABLET 1 TAB PO (21:01)
[2024-03-20 21:55] VITALS: BP 111/58; PULSE 96; RESP 18; TEMP 37.1; O2SAT 100
[2024-03-20 23:01] VITALS: BP 111/58; PULSE 96; RESP 18; TEMP 37.1; O2SAT 100
== END 2024-03-20 23:02 | disposition home or self-care (01) ==
PROVIDERS: Physician Assistant Medical; Emergency Provider Emergency Medicine; PCP Internal Medicine
DX: R51.9 Headache, unspecified (principal); N39.0 Urinary tract infection, site not specified; R11.0 Nausea; Z79.899 Other long term (current) drug therapy
CPT/HCPCS: 36415; 70450; 80053; 81001; 83735; 84702; 85025; 87086; 99284

== ENCOUNTER 2024-05-24 11:07 | Outpatient (AMB) | payer OTHER, SELFPAY ==
--- NOTE | 2024-05-24 11:09 | MHC.OFFWIV ---
Intake Vital Signs 05/24/24 11:13 Height 5 ft 6 in Weight 323 lb BMI 52.1 BP 118/78 Blood Pressure Location Rt brachial Position Sitting Pulse 96 Pulse Source Pulse Oximeter Pulse Oximetry (%) 96 Oxygen Delivery Method Room Air Intake Visit Reasons: EP-anxiety & depression Intake Note: Patient here for anxiety and depression which has caused her to miss days of work and is looking for a referral as well as a note for her job. she needs a note for 05/18 for about 1 week so that it does not affect her job as she is in the process of applying for FMLA. Patient Tobacco Use Status: Never used Tobacco Allergies aloe Allergy (Intermediate, Verified 05/24/24 11:16) Hives guaifenesin [From ROBITUSSIN] Allergy (Intermediate, Verified 05/24/24 11:16) Rash benzonatate Adverse Reaction (Verified 05/24/24 11:16) Numbness Do you need a note to return to daycare/school/sports/work: Yes HPI EP-anxiety & depression HPI Details This note is constructed using voice recognition software. 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 The patient is a 28 year old female who presents to the clinic today with exacerbation of her anxiety and depression for the past several months. She reports that she has been taking her sertraline 100 mg on a p.r.n. basis, never consistently for the past several months as she felt that the dosing was slightly too high. She previously was following a psychiatrist but due to an insurance change is now having this managed by her primary care provider. She reports that she did not like the side effects of the medication at the higher dose, so she started taking the medication intermittently. After that she developed increased anxiety and panic attacks. She has not required hospitalization for these. She denies SI/HI. She reports that both her home life and her work life have also been triggers for worsening anxiety and depression. She is contemplating leaving her field of work entirely as she is no longer feeling the drive to do so and feels that the work is mentally draining to her. She reports that she is working with her primary care provider for FMLA forms for a leave of absence. She requests a letter to remain out of work for the next week so that she can get her forms completed to support further absence. [facility]LY [facility] Medical History Hepatitis B immune Anxiety Depression Morbid obesity Extreme obesity Gall stone Insomnia Back pain History of PCOS History of anxiety Surgical History History of surgery Hx of cholecystectomy Family History (Updated 12/01/23 @ 15:57 by Bonny Chadwick MD) Maternal Grandmother Diabetes mellitus Ovarian cancer Mother Migraine Father Diabetes mellitus Sister No problems noted. Maternal Uncle Diabetes mellitus Family/Other Breast cancer Other Mental health disorder Social History Household Members: None Housing: Apartment Alcohol intake: current Alcohol intake frequency: holidays/special occasions only Patient Tobacco Use Status: Never used Tobacco e-Cigarette/Vaping Use: Never Used Second Hand Smoke Exposure: No service: No Current occupational status: employed Current occupational exposures/hazards: No Sexual orientation: Straight/Heterosexual Gender identity: Female Cognitive needs: No Hearing needs: No Vision needs: Yes Female Reproductive History Menstrual Age of Menarche: 12 Review of Systems Const All systems reviewed & are unremarkable except as noted in HPI and below Physical Exam Const General: cooperative, healthy appearing, comfortable, no acute distress and well developed Orientation/consciousness: patient oriented x3 Limitations: no limitations Resp Effort & Inspection: normal respiratory effort and able to speak in complete sentences Neuro General: patient oriented x3 Assessment & Plan Assessment & Plan (1) Generalized anxiety disorder with panic attacks: Code(s): F41.1 - Generalized anxiety disorder; F41.0 - Panic disorder [episodic paroxysmal anxiety] Plan: Advised consideration of meditation, and follow up with primary care provider for ongoing medication management of her exacerbation of her chronic conditions. Reviewed appropriate use of SSRIs including daily dosing, as p.r.n. dosing void lead to likely increased feeling of anxiety. Advised ER with sudden acute worsening of symptoms. Advised consideration of use of meditation apps for stress reduction. Reviewed appropriateness of medication adjustment and follow up needs with mental health medication, as this should be managed by her primary care provider or mental health team. We provided a letter to support absence with the next week while she works on getting her FMLA forms completed. Additionally we discussed trial of hydroxyzine as needed for anxiolytic properties, which she agreed to. A short course of as needed hydroxyzine was sent to requested pharmacy. (2) Depression: Code(s): F32.9 - Major depressive disorder, single episode, unspecified Qualifiers: Depression Type: major depressive disorder Major depression recurrence: recurrent Active/Remission status: in full remission Qualified Code(s): F33.42 - Major depressive disorder, recurrent, in full remission Plan: Denies SI/HI. Reviewed appropriate use of SSRIs including daily dosing, as p.r.n. dosing void lead to likely increased feeling of anxiety. Advised ER with sudden acute worsening of symptoms. Plan See above for full details and plan. Medications: New hydroxyzine HCl 10 mg PO TID 5 days PRN 15 tabs 0RF anxiety Coding Level of Care Code Est Pt Level 4 (12768) Diagnoses Generalized anxiety disorder with panic attacks F41.1; F41.0 Recurrent major depressive disorder, in full remission F33.42 Depression Type: major depressive disorder Major depression recurrence: recurrent Active/Remission status: in full remission
[2024-05-24 11:13] VITALS: BP 118/78; PULSE 96; O2SAT 96; BMI 52.1
== END 2024-05-24 11:51 | disposition home or self-care (01) ==
PROVIDERS: PCP Internal Medicine; Visit Provider Registered Nurse
DX: F41.1 Generalized anxiety disorder (principal); F41.0 Panic disorder [episodic paroxysmal anxiety]; F33.42 Major depressive disorder, recurrent, in full remission

== ENCOUNTER → 2024-05-24 11:07 | Outpatient (BNVA) | payer OTHER, SELFPAY | PROVIDERS: PCP Internal Medicine; Visit Provider Registered Nurse | DX: F41.1 Generalized anxiety disorder (principal); F41.0 Panic disorder [episodic paroxysmal anxiety]; F33.42 Major depressive disorder, recurrent, in full remission | CPT/HCPCS: 99212 ==

== ENCOUNTER 2025-04-18 15:42 | Outpatient (AMB) | payer OTHER, SELFPAY ==
[2025-04-18 15:47] VITALS: BP 120/64; PULSE 88; RESP 18; TEMP 36.3; O2SAT 97; BMI 56.6
--- NOTE | 2025-04-18 15:47 | A.OFFPC_ITS ---
Vital Signs 04/18/25 15:47 Height 5 ft 6 in Weight 351 lb BMI 56.6 BP 120/64 Blood Pressure Location Lt brachial Position Sitting Respiration 18 Pulse 88 Pulse Source Pulse Oximeter Temp 97.3 F Temp Source Temporal Artery Scan Pulse Oximetry (%) 97 Oxygen Delivery Method Room Air Intake Visit Reasons: medical concerns. 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 Accompanied by: Self / Same As Patient Allergies aloe Allergy (Intermediate, Verified 04/18/25 15:58) Hives guaifenesin (From ROBITUSSIN) Allergy (Intermediate, Verified 04/18/25 15:58) Rash benzonatate Adverse Reaction (Verified 04/18/25 15:58) Numbness Medication List - Last Reconciled 04/18/25 by Bonny Chadwick MD No Known Home Meds Tobacco use date assessed: 04/18/25 Dental Screening Dental Screen Date: 04/18/25 Did you have a dental visit in the last 12 months?: No Did you have a dental problem in the last 6 months where you did not have access to dental care?: No Was dental information given to patient?: No HPI HPI Comments History of Present Illness Details The patient is a 29-year-old female presenting with depression and weight management concerns. The patient reports a history of depression with a PHQ-9 score of 19, indicating moderate to severe depression. She was previously on sertraline but found it too strong and is considering starting bupropion. The patient has not been able to see her previous psychiatrist due to insurance issues. The patient has a history of prediabetes and morbid obesity with a BMI of 56. She has attempted weight management with Wegovy but faced availability issues and experienced constipation as a side effect. The patient has been advised to follow a diet and exercise regimen to achieve a BMI goal of less than 30. [facility] Medical History (Updated 04/18/25 @ 16:10 by Bonny Chadwick MD) Mild recurrent major depression Hepatitis B immune Anxiety Depression Morbid obesity Extreme obesity Gall stone Insomnia Back pain History of PCOS History of anxiety Surgical History History of surgery Hx of cholecystectomy Family History Maternal Grandmother Diabetes mellitus Ovarian cancer Mother Migraine Father Diabetes mellitus Sister No problems noted. Maternal Uncle Diabetes mellitus Family/Other Breast cancer Other Mental health disorder Social History (Updated 04/18/25 @ 16:02 by Bonny Chadwick MD) Household Members: None Housing: Apartment Alcohol intake: current Alcohol intake frequency: holidays/special occasions only Alcohol type: wine Patient Tobacco Use Status: Never used Tobacco e-Cigarette/Vaping Use: Never Used Second Hand Smoke Exposure: No service: No Current occupational status: employed Current occupational exposures/hazards: No Sexual orientation: Straight/Heterosexual Gender identity: Female Cognitive needs: No Hearing needs: No Vision needs: Yes Female Reproductive History Menstrual Age of Menarche: 12 Questionnaire PHQ-9 Over the last 2 weeks, how often have you been bothered by any of the following problems? 1. Little interest or pleasure in doing things: nearly every day 2. Feeling down, depressed, or hopeless: nearly every day 3. Trouble falling or staying asleep, or sleeping too much: nearly every day 4. Feeling tired or having little energy: nearly every day 5. Poor appetite or overeating: more than half the days 6. Feeling bad about yourself - or that you are a failure or have let yourself or your family down: not at all 7. Trouble concentrating on things, such as reading the newspaper or watching television: nearly every day 8. Moving or speaking so slowly that other people could have noticed. Or the opposite - being so fidgety or restless that you have been moving around a lot more than usual: more than half the days 9. Thoughts that you would be better off or of hurting yourself in some way: not at all Total score: 19 Depression Screening Interpretation: Positive (no suicidal thoughts) Depression Screening Follow-up: Existing condition and Follow-up Visit Requested Depression Screening Done: Yes 86978 - PHQ-9 Billing: Yes Source: Developed by Drs. Bradley Lopez, Judith Sneed, Mikal Ahuja and colleagues, with an educational henrik from [email or web address]. Thrive Questionnaire Date Thrive assessed: 02/22/25 I am a: Patient What is your living situation today?: I choose not to answer this question Within the past 12 months, did the food you bought not last and you didn't have the money to get more?: Sometimes True Within the past 12 months, did you worry whether your food would run out before you got money to buy more?: Sometimes True Do you have trouble paying for medicines?: I choose not to answer this question Do you have trouble getting transportation to medical appointments?: No Do you have trouble paying your heating and electricity bill?: I choose not to answer this question Do you have trouble taking care of your child, family member or friend?: No Do you have trouble with day-to-day activities such as bathing, preparing meals, shopping, managing finances, etc.?: No Are you currently unemployed and looking for a job?: No Are you interested in more education?: Yes Currently or been in a relationship where the following occur: I choose not to answer THRIVE Score: 2 NIELS-7 AMB Questionnaire NIELS-7 Date NIELS - 7 assessed: 12/01/23 Source: Developed by Drs. Bradley Lopez, Judith Sneed, Mikal Ahuja and colleagues, with an educational henrik from [email or web address]. Review of Systems Const All systems reviewed & are unremarkable except as noted in HPI and below Card Denies chest pain at rest, Denies chest pain with activity, Denies edema, Denies irregular heart rhythm, Denies claudication, Denies dyspnea, Denies dyspnea on exertion, Denies orthopnea, Denies paroxysmal nocturnal dyspnea and Denies slow heart rate Resp Denies cough, Denies dyspnea and Denies dyspnea on exertion Physical exam (Primary Care) Vital Signs: Last Vital Signs Temp 97.3 F 04/18/25 15:47 Pulse 88 04/18/25 15:47 Resp 18 04/18/25 15:47 BP 120/64 04/18/25 15:47 Pulse Ox 97 04/18/25 15:47 Oxygen Delivery Method Room Air 04/18/25 15:47 BMI result Body Mass Index 56.6 BMI Assessment/Plan discussion: High BMI High, discussed plan: lifestyle, weight reduction, dietary and physical activity Tobacco/Smoking Status: Tobacco use Status Tobacco use date assessed 04/18/25 04/18/25 15:53 Patient Tobacco Use Status Never used Tobacco 04/18/25 15:53 e-Cigarette/Vaping Use Never Used 04/18/25 15:53 PHQ-9: PHQ-9 Score PHQ-9: Total score 19 04/18/25 15:53 Depression Screening Interpretation: Positive (no suicidal thoughts) Depression Screening Follow-up: Existing condition and Follow-up Visit Requested Thrive Assessment: Date of Thrive Assessment Date Thrive assessed 02/22/25 04/18/25 15:53 Currently or been in a relationship where the following occur: I choose not to answer Resp Effort & Inspection: normal respiratory effort Auscultation: clear to auscultation bilaterally Cardio Jugular venous distension: no JVD Rate: regular rate Rhythm: regular rhythm Heart sounds: S1 normal heart sound present and S2 normal heart sound present Extrem General: Yes full ROM Coding Level of Care Code Est Pt Level 3 (57142) Complex EM visit Add On G2211 Diagnoses Moderate recurrent major depression F33.1 Obesity, morbid, BMI 50 or higher E66.01 Additional Codes PHQ-9 - 72953 - PHQ-9 Billing: Yes ([id number]) Time Spent (min) 19 Assessment & Plan Assessment & Plan (1) Moderate recurrent major depression: Code(s): F33.1 - Major depressive disorder, recurrent, moderate Category: Medical (2) Obesity, morbid, BMI 50 or higher: Code(s): E66.01 - Morbid (severe) obesity due to excess calories Category: Medical Plan Plan Patient was informed and verbally consented to the use of an ambient scribe for clinic note documentation during this visit. 1. Depression The patient will be started on bupropion to manage her depression, as she found sertraline too strong. Follow-up will be necessary to assess the effectiveness of the medication and adjust as needed. 2. Prediabetes Fasting blood work will be ordered to monitor glucose levels and assess the status of prediabetes. 3. Morbid Obesity The patient is advised to follow a diet and exercise regimen to reduce her BMI to below 30. Wegovy was previously attempted but faced availability issues; alternative weight management strategies will be considered. Orders: Orders Lipid Panel Today E66.01 - Morbid (severe) obesity due to excess calories, E78.5 - Hyperlipidemia, unspecified Complete Blood Count Auto Diff Today E66.01 - Morbid (severe) obesity due to excess calories Comprehensive [place]. Panel Fast Today E66.01 - Morbid (severe) obesity due to excess calories Thyroid Stimulating Hormone Today E66.01 - Morbid (severe) obesity due to excess calories Vitamin B12 and Folate Today E53.8 - Deficiency of other specified B group vitamins Vitamin D 25-OH Total Today E55.9 - Vitamin D deficiency, unspecified Medications: New bupropion HCl XL (Wellbutrin XL) 150 mg PO QAM 90 tabs 1RF 90 days tirzepatide (weight loss) (Zepbound) for 4 weeks 2.5 mg (0.5 mL) subcut QWEEK 2 mL 0RF 4 weeks E66.01 - Morbid (severe) obesity due to excess calories
== END 2025-04-18 16:13 | disposition home or self-care (01) ==
LOC: HO.HMCH 15:43
PROVIDERS: PCP Internal Medicine; Visit Provider Internal Medicine
DX: F33.1 Major depressive disorder, recurrent, moderate (principal); E66.01 Morbid (severe) obesity due to excess calories; Z68.43 Body mass index [BMI] 50.0-59.9, adult

== ENCOUNTER → 2025-04-18 15:42 | Outpatient (BNVA) | payer OTHER, SELFPAY | PROVIDERS: PCP Internal Medicine; Visit Provider Internal Medicine | DX: F33.1 Major depressive disorder, recurrent, moderate (principal); R73.03 Prediabetes; E66.01 Morbid (severe) obesity due to excess calories; E78.5 Hyperlipidemia, unspecified; E53.8 Deficiency of other specified B group vitamins; E55.9 Vitamin D deficiency, unspecified; Z68.43 Body mass index [BMI] 50.0-59.9, adult | CPT/HCPCS: 96127; 99212 ==